=== PATIENT | female | born 1940 | race Caucasian/White ===

== ENCOUNTER 2018-04-19 10:55 | Inpatient (IN) | payer MEDICARE, BC ==
[~2018-04-19] VITALS: Ht 171.4 cm; Wt 59.9 kg
[~2018-04-19 10:55] MED LIST: FERR1TAB44 PO; FOLI1TAB16 PO; HYDR-4209 PO; PANT40TA4 PO; THIA100T13 PO; ZOLP10TA2 PO
--- NOTE | 2018-04-19 11:00 | NUR ---
BIB [facility] HOME, RUQ PAIN SINCE YESTERDAY. DENIES TRAUMA. SEEN BY MD FOR EVAL. VSS,. SAFETY AND COMFORT MEASURES PROVIDED. WILL MONITOR.
--- NOTE | 2018-04-19 11:59 | NUR ---
PT'S SISTER'S CELLPHONE NUMBER [phone]
[2018-04-19] MEDS ORDERED: MORPHINE SULFATE INJ 2 MG/ML DISP.SYRIN SQ ONE (12:00)
--- NOTE | 2018-04-19 12:00 | NUR ---
IV ACCESS STARTED. MEDICATED ORDERED.
[2018-04-19 12:04] LABS: BASOPHILS # (AUTO) 0.1 /CMM (0.0-0.2); BASOPHILS % (AUTO) 1.9 % (0.0-2.0); EOSINOPHILS % (AUTO) 1.6 % (0.0-6.0); HEMATOCRIT 40 % (33-45); HEMOGLOBIN 13.4 g/dL (11.5-14.8); LYMPHOCYTES # (AUTO) 0.5 /CMM (0.8-4.8); LYMPHOCYTES % (AUTO) 9.1 % (20.0-44.0); MEAN CORPUSCULAR HEMOGLOBIN 34 PG (26.0-33.0); MEAN CORPUSCULAR HGB CONC 34 g/dl (31.0-36.0); MEAN CORPUSCULAR VOLUME 101 fL (82-100); MONOCYTES # (AUTO) 0.8 /CMM (0.1-1.30); MONOCYTES % (AUTO) 13.7 % (2.0-12.0); NEUTROPHILS # (AUTO) 4.1 /CMM (1.8-8.9); NEUTROPHILS % (AUTO) 73.7 % (43.0-81.0); PLATELET COUNT (AUTO) 94 /CMM (150-450); RDW COEFFICIENT OF VARIATION 14.7 (11.5-15.0); RED BLOOD CELL COUNT(AUTO) 3.92 MIL/uL (4.0-5.2); WHITE BLOOD COUNT (AUTO) 5.6 K/uL (4.3-11.0)
[2018-04-19] MEDS ORDERED: MORPHINE SULFATE INJ 4 MG/ML DISP.SYRIN ONE ×2 (12:04→15:51)
[2018-04-19 12:14] LABS: CALCIUM, SERUM 8.6 mg/dL (8.5-10.1); CARBON DIOXIDE 28 mmol/L (21-32); CHLORIDE 103 mmol/L (98-107); CREATININE 1.1 mg/dL (0.6-1.3); GLUCOSE 110 mg/dL (74-106); POTASSIUM 3.7 mmol/L (3.5-5.1); SODIUM SERUM 135 mmol/L (136-145); UREA NITROGEN, BLOOD 14 mg/dL (7-18)
[2018-04-19 12:19] LABS: ALANINE AMINOTRANSFERASE 87 U/L (12-78); ALKALINE PHOSPHATASE 109 U/L (46-116); ASPARTATE AMINOTRANSFERASE 140 U/L (15-37); BILIRUBIN,DIRECT 3.1 mg/dL (0.0-0.2); BILIRUBIN,TOTAL 4.4 mg/dL (0.2-1.0); LIPASE 355 U/L (73-393); TOTAL PROTEIN, SERUM 7.4 g/dL (6.4-8.2)
[2018-04-19 12:21] LABS: TROPONIN I < 0.017 ng/mL (0.00-0.056)
--- NOTE | 2018-04-19 12:26 | NUR ---
URINE SAMPLE OBTAINED, SENT.
[2018-04-19 12:29] LABS: SERUM AMMONIA < 10 umol/L (11-32)
--- NOTE | 2018-04-19 12:50 | NUR ---
US TECH AT BS.
[2018-04-19 12:59] LABS: APPEARANCE,URINE Clear (CLEAR); BILIRUBIN,URINE LARGE (NEGATIVE); BLOOD, URINE Trace-lysed Ery/uL (NEGATIVE); COLOR,URINE Amber (YELLOW); KETONES,URINE Trace (NEGATIVE); LEUKOCYTE ESTERASE ,URINE Negative (NEGATIVE); NITRITE, URINE Negative (NEGATIVE); PH,URINE 5.5 (5.0-8.0); PROTEIN,URINE 30 mg/dl (NEGATIVE); UGLUCOSE Negative (NEGATIVE)
[2018-04-19 13:08] LABS: BACTERIA,URINE Few /HPF (None Seen); SQUAMOUS EPITHELIAL CELL,UR Few /HPF (None Seen); WBC,URINE 0-2 /HPF (0-3)
[2018-04-19 13:09] LABS: HYALINE CASTS, URINE Few /LPF (None Seen)
[2018-04-19 13:19] LABS: INR 1.14 (0.85-1.15)
[2018-04-19] MEDS ORDERED: PANTOPRAZOLE 40 MG VIAL IV ONE (14:00)
[2018-04-19] MEDS ORDERED: HYDR-3024 PO (14:08)
[2018-04-19] MEDS ORDERED: FOLI1TAB16 PO (14:08)
[2018-04-19] MEDS ORDERED: BACL10TA PO (14:08)
[2018-04-19] MEDS ORDERED: FURO20TA4 PO (14:08)
[2018-04-19] MEDS ORDERED: ZOLP5TAB8 PO (14:08)
[2018-04-19] MEDS ORDERED: SPIR25TA6 PO (14:08)
--- NOTE | 2018-04-19 14:10 | NUR ---
PT NOTED TAKING OFF HER GOWN. NOTED BOUTS OF CONFUSION. VSS. AWARE. WILL MONITOR.
[2018-04-19] MEDS ORDERED: CYAN100096 PO (15:09)
[2018-04-19] MEDS ORDERED: THIO100C2 PO (15:09)
[2018-04-19] MEDS ORDERED: FERR325T23 PO (15:09)
[2018-04-19] MEDS ORDERED: CHOL100044 PO (15:09)
[2018-04-19] MEDS ORDERED: ACET1TAB12 PO (15:09)
[2018-04-19] MEDS ORDERED: COD1CAPS6 PO (15:09)
[2018-04-19] MEDS ORDERED: PANTOPRAZOLE 40 MG VIAL ONE (15:51)
[2018-04-19] MEDS ORDERED: MORPHINE SULFATE INJ 2 MG/ML DISP.SYRIN IV ONE (16:00)
--- NOTE | 2018-04-19 16:00 | NUR ---
PT'S GOD DAUGHTER/FAMILY FRIEND AT BS AND UPDATED WITH POC.
[2018-04-19 16:25] VITALS: BP 144/74
--- NOTE | 2018-04-19 16:27 | NUR ---
REPORT GIVEN TO JAMESON JACOBSEN FOR MS 321.
--- NOTE | 2018-04-19 16:45 | NUR ---
m/s blood donor recruiter: notes admitted this 78 year old female pt from e. with dx: abdominal pain. kept pt npo, awaiting orders from hospitalist. bola (goddaughter) at bedside and wants the ball rolling for transfer to [facility]. jennie (case management) met with pt and godalanughter in pt's room and transfer in progress. left message to steve (admitting md) re: transfer request to [facility].
[2018-04-19] MEDS ORDERED: ONDANSETRON HCL/PF 4 MG/2 ML VIAL IVP PRN (17:00)
[2018-04-19] MEDS ORDERED: MAGNESIUM HYDROXIDE 30 ML UDC PO PRN (17:00)
[2018-04-19] MEDS ORDERED: ACETAMINOPHEN 325 MG TABLET PO PRN (17:00)
--- NOTE | 2018-04-19 17:30 | NUR ---
m/s barrel straightener: md visit seen and examined by ashia (acnp) with stat orders. orders acknowledged and consent obtained from pt re: hida scan. also spoke to margarita (nuclear med) and will be here in an hour and hour. pt and family made aware. pt aware no morphine due to test schedule and verbalized understanding. pt hasn't eaten since this morning and will keep pt npo. instructed to call for assistance. will monitor.
--- NOTE | 2018-04-19 18:20 | NUR ---
m/s medical coding specialist: notes [id number] who is a doctor spoke to steve (acnp) and gave more updates re: plan of care. pt remains npo and for diana martell. still awaiting transfer from [facility]; case management still working on it. pt and family aware.
--- NOTE | 2018-04-19 18:35 | NUR ---
m/s assistant professor of education: notes linda (case management) called and informed me that no doctor from [facility] will accept her but she was referred to liver transplant center as stated. steve (acnp) and cn made aware.
--- NOTE | 2018-04-19 19:20 | NUR ---
MS/RN OPENING NOTES PT AWAKE, A/OX3. AMBULATED TO RESTROOM. IV TO RIGHT HAND PATENT AND INTACT. NPO. FOR HIDA SCAN, CONSENT SIGNED AND IN THE CHART. PENDING TRANSFER TO [facility]. BED IN LOW/LOCKED POSITION WITH CALL LIGHT IN REACH. BILATERAL UPPER SIDE RAILS UP. WILL CONTINUE TO MONITOR
--- NOTE | 2018-04-19 19:29 | NUR ---
m/s spray painting machine operator: notes pt picked up by margarita (nuclear med) via w/c at this time.
[2018-04-19 20:00] VITALS: BP 131/73
--- NOTE | 2018-04-19 20:33 | NUR ---
MS/RN NOTES SPOKE TO HUNTER MOULTON FROM [facility] [phone] WHO IS WORKING ON PT'S TRANSFER. ASKING TO SPEAK TO PT FOR VERBAL CONSENT TO TRANSFER TO [facility], SAID TRANSFER WILL PROBABLY NOT HAPPEN TONIGHT. QUICK SBAR REPORT GIVEN. INFORMED HIM THAT PT IS CURRENTLY DOWN FOR HIDA SCAN, ONCE BACK UP TO UNIT WILL GIVE A CALL BACK FOR VERBAL CONSENT.
--- NOTE | 2018-04-19 21:30 | NUR ---
MS/RN NOTES PT BACK TO UNIT VIA WHEEL CHAIR IN STABLE CONDITION.
[2018-04-19] MEDS: IV NS 0.9% 1,000 ML IV PRN (22:01)
[2018-04-19] MEDS: MORPHINE SULFATE INJ 4 MG/ML DISP.SYRIN IV PRN (22:15)
--- NOTE | 2018-04-19 22:19 | NUR ---
MS/RN NOTES PT C/O 05/08 RIGHT UPPER ABDOMINAL PAIN. ADMINISTERED PRN MORPHINE ORDERED. CONSENT FOR MCRP SIGNED AND PLACED IN THE CHART. HUNTER MOULTON SPOKE TO PT OVER THE PHONE, EXPLAINED PLAN TO TRANSFER TO [facility] TOMORROW. WILL CALL TOMORROW WITH UPDATES REGARDING TRANSFER TIME ONCE BED BECOMES AVAILABLE. PT AWARE AND VERBALIZES UNDERSTANDING.
[2018-04-20] MEDS: MORPHINE SULFATE INJ 4 MG/ML DISP.SYRIN IV PRN ×5 (02:16→22:38)
[2018-04-20 06:37] LABS: BASOPHILS % (AUTO) 0.1 % (0.0-2.0); HEMATOCRIT 37 % (33-45); HEMOGLOBIN 12.3 g/dL (11.5-14.8); LYMPHOCYTES # (AUTO) 0.7 /CMM (0.8-4.8); LYMPHOCYTES % (AUTO) 13.4 % (20.0-44.0); MEAN CORPUSCULAR HEMOGLOBIN 34 PG (26.0-33.0); MEAN CORPUSCULAR HGB CONC 33 g/dl (31.0-36.0); MEAN CORPUSCULAR VOLUME 103 fL (82-100); MONOCYTES # (AUTO) 0.5 /CMM (0.1-1.30); MONOCYTES % (AUTO) 10.6 % (2.0-12.0); NEUTROPHILS # (AUTO) 3.6 /CMM (1.8-8.9); NEUTROPHILS % (AUTO) 72.9 % (43.0-81.0); PLATELET COUNT (AUTO) 87 /CMM (150-450); RDW COEFFICIENT OF VARIATION 15.4 (11.5-15.0); RED BLOOD CELL COUNT(AUTO) 3.57 MIL/uL (4.0-5.2)
[2018-04-20 06:49] LABS: CALCIUM, SERUM 8.4 mg/dL (8.5-10.1); CARBON DIOXIDE 26 mmol/L (21-32); CHLORIDE 106 mmol/L (98-107); GLUCOSE 98 mg/dL (74-106); MAGNESIUM 1.4 mg/dL (1.8-2.4); PHOSPHORUS 4.3 mg/dL (2.5-4.9); SODIUM SERUM 139 mmol/L (136-145); UREA NITROGEN, BLOOD 18 mg/dL (7-18)
--- NOTE | 2018-04-20 06:49 | NUR ---
MS/RN CLOSING NOTES PT AWAKE, RESTING IN BED. A/OX3. ON ROOM AIR, BREATHING EVEN AND UNLABORED. DENIES SOB, PAIN WELL CONTROLLED AT THIS TIME. NPO STATUS MAINTAINED. FOR MRCP THIS AM, CONSENT SIGNED AND PLACED IN THE CHART. PT AWARE. IV TO LFA PATENT AND INTACT RUNNING IVF ORDERED. AWARE OF POSSIBLE TRANSFER TO [facility] TODAY. ALL QUESTIONS ANSWERED. BED REMAINS IN LOW/LOCKED POSITION WITH CALL LIGHT IN REACH. BILATERAL UPPER SIDE RAILS IN PLACE. SAFETY PRECAUTIONS IMPLEMENTED THROUGHOUT SHIFT. ALL NEEDS MET. WILL ENDORSE TO DAY SHIFT RN MEGHANN.
[2018-04-20 07:19] LABS: CHOLESTEROL 156 mg/dL (<200); HDL CHOLESTEROL 31 mg/dL (40-60); LDL 120 mg/dL (0-99); TRIGLYCERIDES 118 mg/dL (30-150)
[2018-04-20 08:00] VITALS: BP 136/72
[2018-04-20 08:31] LABS: EOSINOPHILS % (MANUAL) 3 % (0-4); LYMPHOCYTES % (MANUAL) 9 % (16-48); MONOCYTES % (MANUAL) 7 % (0-11.0); NEUTROPHILS % (MANUAL) 81 (42-76)
[2018-04-20] MEDS: Magnesium 1GM/D5W 100ML PREMIX 100 ML IV SCH ×4 (10:39→13:39)
[2018-04-20 11:06] LABS: ALBUMIN 2.9 g/dL (3.4-5.0); BILIRUBIN,DIRECT 3.5 mg/dL (0.0-0.2); BILIRUBIN,TOTAL 5.3 mg/dL (0.2-1.0)
[2018-04-20 16:00] VITALS: BP 130/89
--- NOTE | 2018-04-20 17:00 | NUR ---
RECEIVED REPORT FROM BRANDON PABLO. PT. IS IN STABLE CONDITION A&OX4. PT. DOES NOT C/O PAIN. AMBULATING STEADY, AND ALL NEEDS MET AT THIS TIME. WILL CONTINUE TO ASSESS AND MONITOR PT.
--- NOTE | 2018-04-20 19:30 | NUR ---
RN CLOSING NOTES PT. IN BED A&OX4. BREATHING UNLABORED ON ROOM AIR. NO S/S OF ACUTE DISTRESS.BED IS IN LOWEST, AND LOCKED POSITION. ALL NEEDS MET. WILL ENDORSE REPORT TO NURSE.
[2018-04-20 20:00] VITALS: BP 130/67
--- NOTE | 2018-04-20 20:00 | NUR ---
RECIEVED ALERT AND ORIENTATED SPEECH CLEAR MOVING ALL EXTREMITIES. SPEAKS OF BEING TRANSFERED TO [facility]
[2018-04-20 22:01] VITALS: BP 154/91
[2018-04-20] MEDS: IV NS 0.9% 1,000 ML IV PRN (23:56)
--- NOTE | 2018-04-21 04:52 | NUR ---
ENDING NOTES: EARLY IN THE SHIFT SHE SPOKE OF GOING TO [facility]. SHE IS ALERT AND ORIENTATED. NOTEDD THE BRUISE ON THE RIDE SIDE TORSO WITH HEMATOMIA. SHE STATES SHE FELL AT HOME .MEDICATED X1 PRIOR TO SLEEP FOR THIS PAIN, WHICH MOROPHINE WAS EFFECTIVE. NO C/O ABD PAIN AND NO NAUSEA. BEDALARM ON FOR SAFETY AND REVIEWED THE CALL LIGHT SYSTEM WITH HER. SHE IS SMILING AND IS FRIENDLY
[2018-04-21 06:33] LABS: BASOPHILS % (AUTO) 0.2 % (0.0-2.0); EOSINOPHILS % (AUTO) 2.6 % (0.0-6.0); HEMATOCRIT 35 % (33-45); HEMOGLOBIN 11.6 g/dL (11.5-14.8); LYMPHOCYTES # (AUTO) 0.7 /CMM (0.8-4.8); LYMPHOCYTES % (AUTO) 14.5 % (20.0-44.0); MEAN CORPUSCULAR HEMOGLOBIN 35 PG (26.0-33.0); MEAN CORPUSCULAR HGB CONC 34 g/dl (31.0-36.0); MEAN CORPUSCULAR VOLUME 104 fL (82-100); MONOCYTES # (AUTO) 0.4 /CMM (0.1-1.30); MONOCYTES % (AUTO) 8.3 % (2.0-12.0); NEUTROPHILS # (AUTO) 3.4 /CMM (1.8-8.9); NEUTROPHILS % (AUTO) 74.4 % (43.0-81.0); PLATELET COUNT (AUTO) 75 /CMM (150-450); RDW COEFFICIENT OF VARIATION 15.4 (11.5-15.0); RED BLOOD CELL COUNT(AUTO) 3.34 MIL/uL (4.0-5.2); WHITE BLOOD COUNT (AUTO) 4.6 K/uL (4.3-11.0)
[2018-04-21 07:25] LABS: LYMPHOCYTES % (MANUAL) 17 % (16-48); MONOCYTES % (MANUAL) 5 % (0-11.0); NEUTROPHILS % (MANUAL) 77 (42-76)
[2018-04-21 07:26] LABS: EOSINOPHILS % (MANUAL) 1 % (0-4)
[2018-04-21 07:29] LABS: ALANINE AMINOTRANSFERASE 63 U/L (12-78); ALBUMIN 2.7 g/dL (3.4-5.0); ALKALINE PHOSPHATASE 93 U/L (46-116); ASPARTATE AMINOTRANSFERASE 110 U/L (15-37); BILIRUBIN,DIRECT 3.3 mg/dL (0.0-0.2); BILIRUBIN,TOTAL 4.9 mg/dL (0.2-1.0); CALCIUM, SERUM 8.1 mg/dL (8.5-10.1); CARBON DIOXIDE 25 mmol/L (21-32); CHLORIDE 104 mmol/L (98-107); CREATININE 0.9 mg/dL (0.6-1.3); GLUCOSE 79 mg/dL (74-106); MAGNESIUM 1.9 mg/dL (1.8-2.4); PHOSPHORUS 3.1 mg/dL (2.5-4.9); POTASSIUM 4.2 mmol/L (3.5-5.1); SODIUM SERUM 137 mmol/L (136-145); TOTAL PROTEIN, SERUM 6.5 g/dL (6.4-8.2); UREA NITROGEN, BLOOD 18 mg/dL (7-18)
--- NOTE | 2018-04-21 07:38 | NUR ---
RN OPENING NOTES RECEIVED PT. PT IS STABLE AND RESTING IN BED. NO S/S OF RESP DISTRESS OR SOB. NO C/O PAIN AT THIS TIME. IV ACCESS LOCATED ON LFA 22G, INFUSING NS AT 75 CC/HR. PER DRIP BOX TENDER REPORT, PT AWAITING TRANSFER TO [facility] ([facility] - [phone]), WILL F/U WITH CM. SAFETY MEASURES IN PLACE, CALL LIGHT WITHIN REACH. WILL CONTINUE TO MONITOR.
[2018-04-21 08:00] VITALS: BP 121/60
[2018-04-21] MEDS: MORPHINE SULFATE INJ 4 MG/ML DISP.SYRIN IV PRN (08:06)
[2018-04-21 09:00] VITALS: BP 121/60
--- NOTE | 2018-04-21 13:00 | NUR ---
DISCHARGE NOTE PT DISCHARGED HOME. NO S/S OF RESP DISTRESS OR SOB. VSS. NO C/O PAIN AT THIS TIME. DISCHARGE TEACHING PERFORMED UTILIZING EXIT CARE. PT VERBALIZES UNDERSTANDING. BELONGINGS LIST AND D/C PAPERWORK SIGNED, COPIED AND PLACED IN CHART. PT REFUSED PICTURES OF RIGHT FLANK BRUISE UPON D/C. IV ACCESS AND ID BAND REMOVED. PT LEFT HOSPITAL IN PRIVATE VEHICLE WITH TRANSPORTATION SERVICES.
== END 2018-04-21 13:15 | disposition home or self-care (01) | DRG 605 ==
LOC: ER 10:57 → MED 16:05
PROVIDERS: ADMIT Nurse Practitioner Acute Care; ATTEND Nurse Practitioner Acute Care
DX: S30.1XXA Contusion of abdominal wall, initial encounter (principal); D69.59 Other secondary thrombocytopenia; F10.10 Alcohol abuse, uncomplicated; K70.10 Alcoholic hepatitis without ascites; K70.30 Alcoholic cirrhosis of liver without ascites; Z87.891 Personal history of nicotine dependence
CPT/HCPCS: 36415; 74181-TC; 76700-TC; 78226; 80048-TC; 80061-TC; 80076-TC; 80305; 81000-TC; 82140-TC; 83605-TC; 83690-TC; 83735-TC; 84100-TC; 84484-TC; 85025-TC; 85730-TC; 87081-TC; A4606; A9537; C9113; G0480; J2270; J3475; J3490; J7030; Z7610

== ENCOUNTER 2018-05-09 16:35 | Inpatient (IN) | payer MEDICARE, BC ==
[~2018-05-09] VITALS: Ht 170.2 cm; Wt 60.9 kg
[~2018-05-09 16:35] MED LIST changes: +ACET1TAB12 PO; +BACL10TA PO; +CHOL100044 PO; +COD1CAPS6 PO; +CYAN100096 PO; -FERR1TAB44 PO; +FERR325T23 PO; +FURO20TA4 PO; +HYDR-3024 PO; +SPIR25TA6 PO; +THIO100C2 PO; -ZOLP10TA2 PO; +ZOLP5TAB8 PO
--- NOTE | 2018-05-09 17:00 | NUR ---
PATIENT JEFFERSON C/O WEAKNESS THAT HAS NOT GOTTEN BETTER. WAS D/C'D FROM [facility] YESTERDAY AFTER FALL. ALSO WAS AT [facility] RECENTLY AND WAS KAYLEIGH BILIRUBIN LEVEL WAS ELEVATED AND TX FOR LIVER. PATIENT IS A POOR HISTORIAN AND PASSIVE WITH EDUCATION AND CONVERSATION. PATIENT VSS. PALCED ON 2LPM NC FOR COMFORT
[2018-05-09 17:31] LABS: BASOPHILS % (AUTO) 0.7 % (0.0-2.0); EOSINOPHILS % (AUTO) 2.4 % (0.0-6.0); HEMATOCRIT 39 % (33-45); HEMOGLOBIN 13.4 g/dL (11.5-14.8); LYMPHOCYTES # (AUTO) 0.7 /CMM (0.8-4.8); LYMPHOCYTES % (AUTO) 20.1 % (20.0-44.0); MEAN CORPUSCULAR HGB CONC 34 g/dl (31.0-36.0); MEAN CORPUSCULAR VOLUME 102 fL (82-100); MONOCYTES # (AUTO) 0.3 /CMM (0.1-1.30); MONOCYTES % (AUTO) 9.8 % (2.0-12.0); NEUTROPHILS # (AUTO) 2.1 /CMM (1.8-8.9); RDW COEFFICIENT OF VARIATION 16.6 (11.5-15.0); RED BLOOD CELL COUNT(AUTO) 3.87 MIL/uL (4.0-5.2); WHITE BLOOD COUNT (AUTO) 3.2 K/uL (4.3-11.0)
--- NOTE | 2018-05-09 17:37 | NUR ---
PATIENT TAKEN TO CT
[2018-05-09 17:42] LABS: ALANINE AMINOTRANSFERASE 47 U/L (12-78); ALBUMIN 3.2 g/dL (3.4-5.0); ALCOHOL, BLOOD < 3 mg/dL (0-0); ALKALINE PHOSPHATASE 141 U/L (46-116); ASPARTATE AMINOTRANSFERASE 140 U/L (15-37); BILIRUBIN,DIRECT 2.9 mg/dL (0.0-0.2); BILIRUBIN,TOTAL 5.8 mg/dL (0.2-1.0); CALCIUM, SERUM 8.9 mg/dL (8.5-10.1); CARBON DIOXIDE 30 mmol/L (21-32); CHLORIDE 95 mmol/L (98-107); CREATININE 1.9 mg/dL (0.6-1.3); GLUCOSE 106 mg/dL (74-106); POTASSIUM 3.5 mmol/L (3.5-5.1); SODIUM SERUM 134 mmol/L (136-145); TOTAL PROTEIN, SERUM 7.4 g/dL (6.4-8.2); UREA NITROGEN, BLOOD 25 mg/dL (7-18)
[2018-05-09 17:47] LABS: PLATELET COUNT (AUTO) 50 /CMM (150-450)
[2018-05-09 18:00] LABS: SERUM AMMONIA 16 umol/L (11-32)
[2018-05-09 18:22] LABS: BAND % (MANUAL) 12 % (0.0-5.0); EOSINOPHILS % (MANUAL) 3 % (0-4); LYMPHOCYTES % (MANUAL) 23 % (16-48); MONOCYTES % (MANUAL) 8 % (0-11.0); NEUTROPHILS % (MANUAL) 54 (42-76)
[2018-05-09] MEDS ORDERED: HYDROCODONE/APAP 5/325MG 1 EACH TABLET ONE (18:46)
[2018-05-09] MEDS ORDERED: HYDROCODONE/APAP 5/325MG 1 EACH TABLET PO ONE (19:00)
[2018-05-09 19:06] LABS: INR 1.26 (0.87-1.13)
--- NOTE | 2018-05-09 19:32 | NUR ---
CARE ENDORSED TO BEV WALKER FOR MEGHANN
[2018-05-09] MEDS ORDERED: ZOLPIDEM TARTRATE 5 MG TABLET PO PRN (20:00)
[2018-05-09] MEDS ORDERED: ONDANSETRON HCL/PF 4 MG/2 ML VIAL IVP PRN (20:00)
[2018-05-09] MEDS ORDERED: ACETAMINOPHEN 325 MG TABLET PO PRN (20:00)
[2018-05-09] MEDS ORDERED: MAGNESIUM HYDROXIDE 30 ML UDC PO PRN (20:00)
[2018-05-09] MEDS ORDERED: BACLOFEN (10 MG) 10 MG TABLET PO PRN (20:00)
[2018-05-09] MEDS ORDERED: MAG HYDROX/AL HYDROX/SIMETH 30 ML UDC PO PRN (20:00)
[2018-05-09] MEDS ORDERED: Z GUARD REMEDY 2 OZ OINT TP PRN (20:00)
--- NOTE | 2018-05-09 20:29 | NUR ---
CALLED AND GIVE REPORT TO NARCISA PABLO, FOR CONTINUITY OF CARE. PT IS IN STABLE CONDITION.
[2018-05-09 20:30] VITALS: BP 104/57
--- NOTE | 2018-05-09 20:40 | NUR ---
TELE EXERCISE SCIENCE INTERNSHIP INITIAL NOTES ADMIT PT FROM ER VIA SANGEETHA ACCOMPANIED BY CHEMICAL COMPOUNDER HELPER. DX OF ENCEPHALOPATY. PT IS AWAKE AND ALERT , ABLE TO AMBULATE WITH CANE AND ASSISTANCE. NO SIGNS OF ANY ACUTE DISTRESS NOTED. AWARE WHERE SHE AT . SHE ALSO CAN PROVIDE SOME INFORMATION ABOUT HERSELF. PT STATED SHE NOTICED SHE'S FEELING WEAKNESS LAVON THE WEEK THAT'S WHY SHE HAD MULTIPLE FALLS. ORIENTED HOW TO USED THE CALL LIGHT SYSTEM AND AT THE SAME TIME ENCOURAGE HER TO USED IT IF SHE NEEDS SOME HELPED OR NEEDS THE NURSE . SINUS RHYTHM ON TELE MONITOR. PLACE BED IN LOW AND LOCK IN POSITION WITH SIDE RAILS X2 UP PLACE CALL LIGHT AT REACH. BED ALARM SET FOR SAFETY. WILL CONTINUE MONITOR.
[2018-05-09 20:45] VITALS: BP 104/57
[2018-05-09] MEDS: HYDROCODONE/APAP 5/325MG 1 EACH TABLET PO PRN (22:09)
[2018-05-09] MEDS: ZOLPIDEM TARTRATE 5 MG TABLET PO PRN (22:47)
[2018-05-10] VITALS: BP 105/48
[2018-05-10] MEDS: LACTULOSE 10 G/15 ML UDC (PYXIS) PO SCH ×5 (01:04→23:17)
[2018-05-10] MEDS: HYDROCODONE/APAP 5/325MG 1 EACH TABLET PO PRN ×3 (02:24→20:28)
--- NOTE | 2018-05-10 02:26 | NUR ---
TELE MARKET NEWS REPORTER NOTES PT WOKE UP TO USED THE RESTROOM ASSISTED TO WALKED WITH CANE. THE AFTER THAT PT COMPLAINED OF PAIN 5/10, NORCO TABLET GIVEN ORDERED . EDUCATE HER ABOUT THE POSSIBLE SIDE EFFECT AND PT UNDERSTOOD WELL. KEPT HER WARM AND COMFORTABLE AT ALL TIMES. WILL CONTINUE MONITORING.
[2018-05-10 04:00] VITALS: BP 120/68
--- NOTE | 2018-05-10 06:47 | NUR ---
TELE HYDROPONICS WORKER NOTES PT AWAKE AND ALERT EATING SOME SANDWICH RIGHT NOW BECAUSE SHE FEEL HUNGRY, ROUTINE MEDS GIVEN ORDERED. BACLOFEN ALSO GIVEN FOR HER MUSCLE SPASM. KEPT HER COMFORTABLE AT ALL TIMES. PLACE CALL LIGHT AT REACH. WILL CONTINUE MONITORING.
[2018-05-10 06:51] LABS: BASOPHILS % (AUTO) 0.7 % (0.0-2.0); EOSINOPHILS % (AUTO) 3.7 % (0.0-6.0); HEMATOCRIT 34 % (33-45); HEMOGLOBIN 11.9 g/dL (11.5-14.8); LYMPHOCYTES # (AUTO) 0.7 /CMM (0.8-4.8); LYMPHOCYTES % (AUTO) 24.3 % (20.0-44.0); MEAN CORPUSCULAR HGB CONC 35 g/dl (31.0-36.0); MEAN CORPUSCULAR VOLUME 103 fL (82-100); MONOCYTES # (AUTO) 0.3 /CMM (0.1-1.30); MONOCYTES % (AUTO) 10.4 % (2.0-12.0); NEUTROPHILS # (AUTO) 1.7 /CMM (1.8-8.9); NEUTROPHILS % (AUTO) 60.9 % (43.0-81.0); RDW COEFFICIENT OF VARIATION 16.8 (11.5-15.0); RED BLOOD CELL COUNT(AUTO) 3.32 MIL/uL (4.0-5.2); WHITE BLOOD COUNT (AUTO) 2.8 K/uL (4.3-11.0)
[2018-05-10 07:28] LABS: ALANINE AMINOTRANSFERASE 45 U/L (12-78); ALBUMIN 2.7 g/dL (3.4-5.0); ALKALINE PHOSPHATASE 114 U/L (46-116); ASPARTATE AMINOTRANSFERASE 137 U/L (15-37); BILIRUBIN,DIRECT 3.2 mg/dL (0.0-0.2); BILIRUBIN,TOTAL 6.1 mg/dL (0.2-1.0); CALCIUM, SERUM 8.2 mg/dL (8.5-10.1); CARBON DIOXIDE 27 mmol/L (21-32); CHLORIDE 94 mmol/L (98-107); CREATININE 1.3 mg/dL (0.6-1.3); GLUCOSE 82 mg/dL (74-106); PHOSPHORUS 3.2 mg/dL (2.5-4.9); POTASSIUM 3.6 mmol/L (3.5-5.1); SODIUM SERUM 129 mmol/L (136-145); TOTAL PROTEIN, SERUM 6.3 g/dL (6.4-8.2); UREA NITROGEN, BLOOD 26 mg/dL (7-18)
[2018-05-10 07:30] LABS: CHOLESTEROL 148 mg/dL (<200); HDL CHOLESTEROL 53 mg/dL (40-60); LDL 97 mg/dL (0-99); THYROID STIMULATING HORMONE 3.001 uIU/mL (0.358-3.74); TRIGLYCERIDES 97 mg/dL (30-150)
--- NOTE | 2018-05-10 07:35 | NUR ---
TELE BALLROOM DANCER CLOSING NOTES' PT AWAKE AND WATCHING TV AT THIS TIME. ALL DUE MEDS GIVEN AND ALL NEEDS MET.STABLE LAVON THE NIGHT EXCEPT PAIN . ENDORSE TO AM NURSE FOR CONTINUITY OF CARE. PLACE CALL LIGHT AT REACH. Addendum: 05/10/18 at 0751 by NARCISA IBARRA LVN TELE SINUS RHYTHM HEART RATE 82 PER MONITOR.
[2018-05-10 07:38] LABS: PLATELET COUNT (AUTO) 50 /CMM (150-450)
[2018-05-10 07:40] LABS: MAGNESIUM 1.2 mg/dL (1.8-2.4)
[2018-05-10 07:47] LABS: BAND % (MANUAL) 4 % (0.0-5.0); EOSINOPHILS % (MANUAL) 4 % (0-4); LYMPHOCYTES % (MANUAL) 27 % (16-48); MONOCYTES % (MANUAL) 9 % (0-11.0); NEUTROPHILS % (MANUAL) 56 (42-76)
[2018-05-10 08:00] VITALS: BP 142/69
--- NOTE | 2018-05-10 08:00 | NUR ---
QUARTER FOLDER NOTES PATIENT IN BED RESTING NO SOB OR ACUTE DISTRESS NOTED. PATIENT ALERT, ORIENTED X3. BED IN LOW LOCKED POSITION. CALL LIGHT WITHIN REACH. WILL CONTINUE TO MONITOR.
[2018-05-10] MEDS: FOLIC ACID 1 MG TABLET PO SCH (08:23)
[2018-05-10] MEDS: FERROUS SULFATE (325 MG) 325 MG/TAB TABLET PO SCH (08:23)
[2018-05-10] MEDS: CHOLECALCIFEROL 1,000 UNIT TABLET (VIT D3) PO SCH (08:23)
[2018-05-10] MEDS: THIAMINE HCL 100 MG TABLET PO SCH (08:23)
[2018-05-10] MEDS: PANTOPRAZOLE 40 MG TABLET.DR PO SCH (08:23)
[2018-05-10] MEDS: SPIRONOLACTONE 25 MG TABLET PO SCH (08:23)
--- NOTE | 2018-05-10 09:00 | NUR ---
HOME IMPROVEMENT ADVISOR NOTES PATIENT SEEN AND EVALUATED BY DR. IGLESIAS ORDERS NOTED AND CARRIED OUT.
[2018-05-10] MEDS: Magnesium 1GM/D5W 100ML PREMIX 100 ML IV SCH ×4 (09:31→16:08)
[2018-05-10] MEDS: GABAPENTIN 100 MG CAPSULE PO SCH ×2 (12:23→16:57)
[2018-05-10 12:53] LABS: APPEARANCE,URINE SL CLOUDY (CLEAR); BILIRUBIN,URINE NEGATIVE (NEGATIVE); BLOOD, URINE TRACE Ery/uL (NEGATIVE); COLOR,URINE YELLOW (YELLOW); KETONES,URINE NEGATIVE (NEGATIVE); LEUKOCYTE ESTERASE ,URINE NEGATIVE (NEGATIVE); NITRITE, URINE NEGATIVE (NEGATIVE); PROTEIN,URINE NEGATIVE (NEGATIVE); UGLUCOSE NEGATIVE (NEGATIVE)
[2018-05-10 13:08] LABS: BACTERIA,URINE Rare /HPF (None Seen); RBC,URINE 0-2 /HPF (0-2); WBC,URINE 0-2 /HPF (0-3)
[2018-05-10 16:00] VITALS: BP 128/63
--- NOTE | 2018-05-10 18:16 | NUR ---
RN NOTED PATIENT IN BED RESTING NO SOB OR ACUTE DISTRESS NOTED. NO ACUTE CHANGES IN PATIENTS CONDITION. ALL DUE MEDICATIONS ADMINISTERED. ALL NEEDS MET. WILL ENDORSE TO PM SHIFT MEGHANN.
--- NOTE | 2018-05-10 19:30 | NUR ---
RN MS NOTES RECEIVED PATIENT IN BED AWAKE ALERT AND ORIENTED X 4, RESPIRATIONS EVEN AND UNLABORED,WITH EQUAL RISE AND FALL OF CHEST, DENIES ANY PAIN OR DISCOMFORT AT THIS TIME, IV SITE TO RIGHT FA #20HL, NO REDNESS, NO INFILTRATION PRESENT, ORIENTED TO STAFF AND CALL LIGHT LIGHT AND KEPT WITHIN REACH, PATIENT IS AMBULATORY WITH CANE, DUE TO HISTORY OF FALLS, OFFERED TO PLACE BED ALARM FOR SAFETY PRECAUTIONS PATIENT STRONGLY REFUSED, MADE PATIENT AWARE TO UTILIZE CALL LIGHT FOR NURSING ASSISTANCE. ALL NEEDS ATTENDED AT THIS TIME, WILL CONTINUE TO MONITOR.
[2018-05-10 20:00] VITALS: BP 136/71
--- NOTE | 2018-05-10 20:32 | NUR ---
RN MS NOTES PATIENT COMPLAINT OF PAIN 10/10 TO RIGHT SIDE TORSO AREA. REQUESTING FOR NORCO VITAL SIGNS ASSESSED NOTED B/P WITHIN NORMAL LIMITS 136/71, 98 HEART RATE, RESP 18. NORCO 5-325 PRN GIVEN ORDERED
[2018-05-10] MEDS: ZOLPIDEM TARTRATE 5 MG TABLET PO PRN (22:14)
--- NOTE | 2018-05-10 22:14 | NUR ---
rn ms notes patient requesting for ambien prn given as ordered patient remains in no apparent distress vital signs wnl.
--- NOTE | 2018-05-10 23:16 | NUR ---
rn ms notes patient remains awake at this time but is trying to go to sleep, will continue to monitor.
--- NOTE | 2018-05-10 23:16 | NUR ---
EDUCATED PT AT THIS TIME ON HOW TO USE THE INCENTIVE SPIROMETER. PT IS AWAKE AND ALERT. PT IS FAMILIAR ON HOW TO USE THE DEVICE. PT WAS IN PAIN AND WANTED TO TRY IN THE MORNING. INFORMED THE RN.
--- NOTE | 2018-05-10 23:18 | NUR ---
rn ms notes patient refused lactulose states she does not want it has been going ever since it was given. patient is a&o x4
[2018-05-11] MEDS: LACTULOSE 10 G/15 ML UDC (PYXIS) PO SCH ×3 (06:00→17:23)
--- NOTE | 2018-05-11 06:51 | NUR ---
RN MS CLOSING NOTES PATIENT IN BED AWAKE ALERT AND ORIENTED X 4, RESPIRATIONS EVEN AND UNLABORED,WITH EQUAL RISE AND FALL OF CHEST, DENIES ANY PAIN OR DISCOMFORT AT THIS TIME, IV SITE TO RIGHT FA #20HL, NO REDNESS, NO INFILTRATION PRESENT, CALL LIGHT LIGHT KEPT WITHIN REACH, PATIENT IS AMBULATORY WITH CANE, DUE TO HISTORY OF FALLS, OFFERED TO PLACE BED ALARM FOR SAFETY PRECAUTIONS PATIENT STRONGLY REFUSED, MADE PATIENT AWARE TO UTILIZE CALL LIGHT FOR NURSING ASSISTANCE. ALL NEEDS ATTENDED AT THIS TIME, WILL CONTINUE TO MONITOR AND ENDORSE TO NEXT SHIFT. PATIENT REFUSED LACTULOSE
--- NOTE | 2018-05-11 07:27 | NUR ---
MS RN OPENING NOTES PT WAS RECEIVED IN BED AT LOWEST AND LOCKED PSOITION WITH SIDE RAILS UP X2, A/O X3-4, NO S/S OF PAIN OR DISTRESS NOTED, BREATHING IS EVEN AND UNLABORED ON RA, PT IS AMBULATORY WITH CANE, IV IS PATENT AND INTACT, SAFETY PRECAUTIONS IN PLACE, CALL LIGHT WITHIN REACH, WILL MONITOR ACCORDINGLY.
[2018-05-11 08:00] VITALS: BP 118/72
[2018-05-11] MEDS: SPIRONOLACTONE 25 MG TABLET PO SCH (08:45)
[2018-05-11] MEDS: GABAPENTIN 100 MG CAPSULE PO SCH ×3 (08:45→16:08)
[2018-05-11] MEDS: FERROUS SULFATE (325 MG) 325 MG/TAB TABLET PO SCH (08:47)
[2018-05-11] MEDS: CHOLECALCIFEROL 1,000 UNIT TABLET (VIT D3) PO SCH (08:47)
[2018-05-11] MEDS: PANTOPRAZOLE 40 MG TABLET.DR PO SCH (08:47)
[2018-05-11] MEDS: FOLIC ACID 1 MG TABLET PO SCH (08:47)
[2018-05-11] MEDS: HYDROCODONE/APAP 5/325MG 1 EACH TABLET PO PRN ×2 (08:47→21:09)
[2018-05-11] MEDS: THIAMINE HCL 100 MG TABLET PO SCH (08:48)
[2018-05-11 16:00] VITALS: BP 128/60
--- NOTE | 2018-05-11 17:30 | NUR ---
PT HAS REFUSED CEPHULAC AT 1200 AND 1800, STATING SHE DOES NOT LIKE THAT SHE IS GOING TO THE BATHROOM SO MUCH, EDUCATION REGARDING THE DRUG WAS PROVIDED, WILL MONITOR ACCORDINGLY
--- NOTE | 2018-05-11 18:09 | NUR ---
MS RN CLOSING NOTES PT IN BED AT LOWEST AND LOCKED POSITION WITH SIDE RAILS UP X2, A/O X3-4, NO S/S OF PAIN OR DISTRESS NOTED, BREATHING IS EVEN AND UNLABORED ON RA, PT IS AMBULATORY WITH CANE, IV IS PATENT AND INTACT, WOUND DRESSINGS CHANGED, ALL NEEDS ATTENDED TO, SAFETY PRECAUTIONS IN PLACE, CALL LIGHT WITHIN REACH, WILL ENDORSE TO DAY SHIFT FOR CONTINUITY OF CARE
--- NOTE | 2018-05-11 19:45 | NUR ---
RN OPENING NOTES RECEIVED REPORT FROM MARYCRUZWABRYANNA WALL. FOUND Pt AWAKE, RESTING IN BED READING MAGAZINES. NO S/S OF ACUTE DISTRESS OR SOB NOTED. Pt IS A/OX3, VERBAL, ABLE TO MAKE NEEDS KNOWN. Pt REFUSED TO TAKE THE LACTULOSE EARLIER TODAY, BUT AGREED TO TAKE THE MIDNIGHT DOSE. Pt REQUESTED FOR AMBIEN LATER TONIGHT. IV ACCESS ON RFA #20G, SL. SAFETY MEASURES IN PLACE. BED LOW, LOCKED, HOB ELEVATED, SIDE RAILS UP, CALL LIGHT, AND BEDSIDE TABLE WITHIN REACH. WILL CONTINUE TO MONITOR Pt THROUGHOUT THE NIGHT FOR SAFETY.
[2018-05-11 20:00] VITALS: BP 112/70
[2018-05-12] MEDS: ZOLPIDEM TARTRATE 5 MG TABLET PO PRN (00:02)
[2018-05-12] MEDS: LACTULOSE 10 G/15 ML UDC (PYXIS) PO SCH ×3 (00:02→12:11)
--- NOTE | 2018-05-12 06:15 | NUR ---
RN NOTES Pt REFUSED SCHEDULED LACTULOSE AT 0600. PER Pt STATEMENT ONLY WANTS TO TAKE IT AT NIGHT TIME INSTEAD OF DURING THE DAY.
--- NOTE | 2018-05-12 06:23 | NUR ---
RN CLOSING NOTES NO SIGNIFICANT CHANGES IN Pt's CONDITION. Pt REMAINS STABLE AT THIS TIME. NO S/S OF ACUTE DISTRESS OR SOB NOTED DURING THE NIGHT. Pt IS AWAKE & RESTING IN BED. ALL NEEDS MET AND ATTENDED TO. SAFETY MEASURES IN PLACE. WILL ENDORSE TO DAYSHIFT RN FOR Pt's MEGHANN.
[2018-05-12 07:31] LABS: BASOPHILS % (AUTO) 0.4 % (0.0-2.0); HEMATOCRIT 32 % (33-45); LYMPHOCYTES # (AUTO) 0.6 /CMM (0.8-4.8); LYMPHOCYTES % (AUTO) 26.6 % (20.0-44.0); MEAN CORPUSCULAR HGB CONC 34 g/dl (31.0-36.0); MEAN CORPUSCULAR VOLUME 104 fL (82-100); MONOCYTES # (AUTO) 0.3 /CMM (0.1-1.30); MONOCYTES % (AUTO) 13.6 % (2.0-12.0); NEUTROPHILS # (AUTO) 1.2 /CMM (1.8-8.9); NEUTROPHILS % (AUTO) 56.4 % (43.0-81.0); PLATELET COUNT (AUTO) 52 /CMM (150-450); RDW COEFFICIENT OF VARIATION 17.2 (11.5-15.0); RED BLOOD CELL COUNT(AUTO) 3.11 MIL/uL (4.0-5.2); WHITE BLOOD COUNT (AUTO) 2.1 K/uL (4.3-11.0)
--- NOTE | 2018-05-12 07:39 | NUR ---
MS RN OPENING NOTES RECEIVED PT FROM NIGHTSHIFT NURSE IN STABLE CONDITION. PT IS A/O X3. NO SOB OR ACUTE SIGNS OF DISTRESS NOTED. BREATHING IS EVEN AND UNLABORED. PT ON RA AND SATING WELL. WOUND DRESSINGS NOTED TO BE CLEAN, DRY, AND INTACT, IV NOTED TO BE PATENT AND INTACT. NO REDNESS OR SIGNS OF INFILTRATION NOTED. BED IN LOW LOCKED POSITION, SIDE RAILS UP X2, CALL LIGHT WITHIN REACH. WILL CONTINUE TO MONITOR
[2018-05-12 07:44] LABS: ALANINE AMINOTRANSFERASE 56 U/L (12-78); ALBUMIN 2.6 g/dL (3.4-5.0); ALKALINE PHOSPHATASE 123 U/L (46-116); ASPARTATE AMINOTRANSFERASE 142 U/L (15-37); BILIRUBIN,DIRECT 2.8 mg/dL (0.0-0.2); BILIRUBIN,TOTAL 4.3 mg/dL (0.2-1.0); CALCIUM, SERUM 8.6 mg/dL (8.5-10.1); CARBON DIOXIDE 27 mmol/L (21-32); CHLORIDE 99 mmol/L (98-107); GLUCOSE 116 mg/dL (74-106); MAGNESIUM 1.4 mg/dL (1.8-2.4); PHOSPHORUS 2.7 mg/dL (2.5-4.9); POTASSIUM 3.8 mmol/L (3.5-5.1); SODIUM SERUM 134 mmol/L (136-145); TOTAL PROTEIN, SERUM 6.5 g/dL (6.4-8.2); UREA NITROGEN, BLOOD 12 mg/dL (7-18)
[2018-05-12 08:00] VITALS: BP 117/67
[2018-05-12] MEDS: GABAPENTIN 100 MG CAPSULE PO SCH ×3 (08:43→17:10)
[2018-05-12] MEDS: CHOLECALCIFEROL 1,000 UNIT TABLET (VIT D3) PO SCH (08:43)
[2018-05-12] MEDS: FERROUS SULFATE (325 MG) 325 MG/TAB TABLET PO SCH (08:43)
[2018-05-12] MEDS: THIAMINE HCL 100 MG TABLET PO SCH (08:43)
[2018-05-12] MEDS: PANTOPRAZOLE 40 MG TABLET.DR PO SCH (08:44)
[2018-05-12] MEDS: SPIRONOLACTONE 25 MG TABLET PO SCH (08:44)
[2018-05-12] MEDS: HYDROCODONE/APAP 5/325MG 1 EACH TABLET PO PRN ×2 (08:46→14:39)
[2018-05-12] MEDS: FOLIC ACID 1 MG TABLET PO SCH (08:46)
[2018-05-12 11:11] LABS: EOSINOPHILS % (MANUAL) 3 % (0-4); LYMPHOCYTES % (MANUAL) 22 % (16-48); MONOCYTES % (MANUAL) 10 % (0-11.0); NEUTROPHILS % (MANUAL) 65 (42-76)
[2018-05-12] MEDS: Magnesium 1GM/D5W 100ML PREMIX 100 ML IV SCH ×4 (12:12→16:15)
[2018-05-12] MEDS ORDERED: LACT10SO6 PO (12:21)
[2018-05-12] MEDS ORDERED: GABA100C PO (12:21)
[2018-05-12] MEDS ORDERED: HYDR-3972 PO (12:21)
[2018-05-12 16:00] VITALS: BP 119/62
--- NOTE | 2018-05-12 17:30 | NUR ---
MS DYE BECK REEL OPERATOR NOTES PT WAS DISCHARGED FROM FACILITY IN STABLE CONDITION. REPORT CALLED AND GIVEN TO ROSE ALL NEEDS WERE MET DURING SHIFT AND ORDERS CARRIED OUT ACCORDINGLY. ALL DUE MEDS GIVEN. WOUND AND SKIN CARE RENDERED. IV SUCCESSFULLY REMOVED WITH NO COMPLICATIONS AND CATHETER TIP INTACT. PT SIGNED ALL D/C PAPERWORK AND COPIES MADE AND PLACED IN PT'S CHART. ALL BELONGING VERIFIED PRIOR TO D/C. ELECTROLYTES REPLACED THROUGHOUT SHIFT. PT REFUSED FLU/PNA VACCINES PRIOR TO D/C STATING THAT SHE WANTS TO RECEIVE THEM WHEN SHE FEELS BETTER. D/C PHOTOS TAKEN AND PLACED IN PT'S CHART. SHE WAS SAFELY TRANSFERRED FROM [facility] TO [facility] AND LEFT VIA AMBULANCE TRANSPORT
== END 2018-05-12 17:30 | DRG 423 ==
LOC: ER 16:39 → MED 19:55 → TELE 20:36 → MED 05-10 08:56
PROC: 0JBF0ZZ Excision of Left Upper Arm Subcutaneous Tissue and Fascia, Open Approach (ICD-10-PCS; principal; 2018-05-11)
DX: K70.9 Alcoholic liver disease, unspecified (principal); D61.89 Other specified aplastic anemias and other bone marrow failure syndromes; K83.1 Obstruction of bile duct; G92 Toxic encephalopathy; E87.1 Hypo-osmolality and hyponatremia; N17.9 Acute kidney failure, unspecified; D68.9 Coagulation defect, unspecified; M84.48XA Pathological fracture, other site, initial encounter for fracture; M48.02 Spinal stenosis, cervical region; D69.6 Thrombocytopenia, unspecified; K74.60 Unspecified cirrhosis of liver; Z79.899 Other long term (current) drug therapy; D72.819 Decreased white blood cell count, unspecified; I12.9 Hypertensive chronic kidney disease with stage 1 through stage 4 chronic kidney disease, or unspecified chronic kidney disease; N18.9 Chronic kidney disease, unspecified; R29.6 Repeated falls; S21.202A Unspecified open wound of left back wall of thorax without penetration into thoracic cavity, initial encounter; S41.102A Unspecified open wound of left upper arm, initial encounter; S81.002A Unspecified open wound, left knee, initial encounter; S71.101A Unspecified open wound, right thigh, initial encounter; X58.XXXA Exposure to other specified factors, initial encounter; Y92.9 Unspecified place or not applicable; Z87.891 Personal history of nicotine dependence; W19.XXXA Unspecified fall, initial encounter; F10.10 Alcohol abuse, uncomplicated; Y90.0 Blood alcohol level of less than 20 mg/100 ml
CPT/HCPCS: 36415; 70450-TC; 71111-TC; 72125-TC; 80048-TC; 80061-TC; 80076-TC; 80305; 81000-TC; 82140-TC; 82962-TC; 83735-TC; 84100-TC; 84443-TC; 85025-TC; 85730-TC; 87081-TC; 93307-TC; 95819-TC; A4606; A6253; A6403; G0378; G0480; J3475; J7060; Z7610

== ENCOUNTER 2018-10-08 17:03 | Inpatient (IN) | payer MEDICARE, BC ==
[~2018-10-08] VITALS: Ht 171.4 cm; Wt 62.9 kg
[~2018-10-08 17:03] MED LIST changes: -ACET1TAB12 PO; -BACL10TA PO; -FURO20TA4 PO; +GABA100C PO; -HYDR-3024 PO; +HYDR-3972 PO; -HYDR-4209 PO; +LACT10SO6 PO
--- NOTE | 2018-10-08 17:20 | NUR ---
patient presented to the ER BIBRA c/o headache since 12 noon. On room air, breathing evenly and unlabored. Connected to the monitor and pulse ox. kept comfortable. will continue to monitor accordingly.
[2018-10-08] MEDS ORDERED: METOCLOPRAMIDE HCL 10 MG/2 ML VIAL ONE (18:18)
[2018-10-08] MEDS ORDERED: METOCLOPRAMIDE HCL 10 MG/2 ML VIAL IV ONE (18:30)
[2018-10-08 18:31] LABS: BASOPHILS % (AUTO) 0.6 % (0.0-2.0); EOSINOPHILS % (AUTO) 1.3 % (0.0-6.0); HEMATOCRIT 39 % (33-45); LYMPHOCYTES # (AUTO) 0.8 /CMM (0.8-4.8); MEAN CORPUSCULAR HGB CONC 34 g/dl (31.0-36.0); MEAN CORPUSCULAR VOLUME 100 fL (82-100); MONOCYTES # (AUTO) 0.5 /CMM (0.1-1.30); MONOCYTES % (AUTO) 11.4 % (2.0-12.0); NEUTROPHILS # (AUTO) 2.9 /CMM (1.8-8.9); NEUTROPHILS % (AUTO) 67.7 % (43.0-81.0); PLATELET COUNT (AUTO) 72 /CMM (150-450); RED BLOOD CELL COUNT(AUTO) 3.88 MIL/uL (4.0-5.2); WHITE BLOOD COUNT (AUTO) 4.3 K/uL (4.3-11.0)
[2018-10-08 18:56] LABS: CALCIUM, SERUM 9.9 mg/dL (8.5-10.1); CARBON DIOXIDE 25 mmol/L (21-32); CHLORIDE 102 mmol/L (98-107); CREATININE 1.2 mg/dL (0.6-1.3); GLUCOSE 102 mg/dL (74-106); POTASSIUM 4.7 mmol/L (3.5-5.1); SODIUM SERUM 137 mmol/L (136-145); UREA NITROGEN, BLOOD 16 mg/dL (7-18)
[2018-10-08 19:05] LABS: CHOLESTEROL 200 mg/dL (<200); HDL CHOLESTEROL 66 mg/dL (40-60); LDL 115 mg/dL (0-99); TRIGLYCERIDES 141 mg/dL (30-150)
--- NOTE | 2018-10-08 19:28 | NUR ---
PT VERBALIZES SHE IS IN SEVERE HEADACHE, MADE MD AWARE. MD IS WAITING FOR CT RESULTS BEFORE GIVING MEDICATIONS. MADE PT AWARE.
[2018-10-08] MEDS ORDERED: PROCHLORPERAZINE EDISYLATE 10 MG/2 ML VIAL IVP ONE (20:00)
[2018-10-08] MEDS ORDERED: diphenhydrAMINE HCL 50 MG/ML VIAL IV ONE (20:00)
[2018-10-08] MEDS ORDERED: MORPHINE SULFATE INJ 2 MG/ML DISP.SYRIN IV ONE (20:00)
[2018-10-08] MEDS ORDERED: diphenhydrAMINE HCL 50 MG/ML VIAL ONE (20:08)
[2018-10-08] MEDS ORDERED: PROCHLORPERAZINE EDISYLATE 10 MG/2 ML VIAL ONE (20:08)
[2018-10-08] MEDS ORDERED: MORPHINE SULFATE INJ 2 MG/ML DISP.SYRIN ONE (20:08)
[2018-10-08] MEDS ORDERED: IOHEXOL-350 100 ML VIAL IV ONE (20:12)
[2018-10-08] MEDS ORDERED: CT SWABBABLE VALVE TRANS SET 1 EA INFUS.SET MC ONE (20:12)
[2018-10-08] MEDS ORDERED: IV NS 0.9% 250 ML IV ONE (20:12)
--- NOTE | 2018-10-08 20:15 | NUR ---
WHEELED OUT FOR CT SCAN
--- NOTE | 2018-10-08 21:42 | NUR ---
PT IN BED, STILL HAVING SEVERE HEADACHE, HOOKED TO MONITOR, NAD. WILL CONTINUE TO MONITOR.
[2018-10-08] MEDS ORDERED: CEFTRIAXONE 1GM BAG (ER ONLY) 1 GM/50 ML PIGGYBACK IV ONE (22:00)
[2018-10-08] MEDS ORDERED: CEFTRIAXONE 1GM BAG (ER ONLY) 50 ML IV ONE (22:10)
[2018-10-08] MEDS ORDERED: IV NS 0.9% 1,000 ML IV PRN (22:32)
[2018-10-08] MEDS ORDERED: HYDROCODONE/APAP 10/325MG 1 EA TABLET ONE (22:47)
--- NOTE | 2018-10-08 22:50 | NUR ---
PT VERBALIIZES THAT MORPHINE 2MG IVP DID NOT TAKE EFFECT. MD MADE AWARE, RECEIVED VERBAL ORDER OF NORCO 10-325 MG PO.
[2018-10-08] MEDS ORDERED: ZOLPIDEM TARTRATE 5 MG TABLET PO PRN (23:00)
[2018-10-08] MEDS ORDERED: HYDROCODONE/APAP 10/325MG 1 EA TABLET PO PRN (23:00)
[2018-10-08] MEDS ORDERED: ENOXAPARIN SODIUM 40 MG/0.4 ML DISP.SYRIN SQ SCH (23:00)
[2018-10-08] MEDS ORDERED: MAGNESIUM HYDROXIDE 30 ML UDC PO PRN (23:00)
[2018-10-08] MEDS ORDERED: MAG HYDROX/AL HYDROX/SIMETH 30 ML UDC PO PRN (23:00)
[2018-10-08] MEDS ORDERED: Z GUARD REMEDY 2 OZ OINT TP PRN (23:00)
[2018-10-08] MEDS ORDERED: ONDANSETRON HCL/PF 4 MG/2 ML VIAL IVP PRN (23:00)
[2018-10-08] MEDS ORDERED: HYDROCODONE/APAP 5/325MG 1 EACH TABLET PO PRN (23:00)
--- NOTE | 2018-10-08 23:00 | NUR ---
REPORT GIVEN TO ROSENDO PABLO FOR MEGHANN
--- NOTE | 2018-10-08 23:50 | NUR ---
MEDIA SERVICES DIRECTORGLAZE MIXER NOTES Patient came to unit via gurney, alert, oriented x 4. Breathing even and unlabored. Not in any distress. Still complaining of severe headache. IV line on LAC g#20 intact and patent. Tele monitor in place, ST 99- 103 with PAC's. Skin assessment done. No open wound but noted redness and bruises resulting from a fall last week. Pictures attached to chart. Oriented to call blount, placed within easy reach. Bed in low, locked position. Encouraged to call for assistance. Will continue to monitor accordingly.
--- NOTE | 2018-10-09 00:20 | NUR ---
RN NOTES PRODUCTION SANITIZER Malini at patient's bedside. Clarified with her the Lovenox 40mg order with platelet count of 72. As per Malini,"It's fine. Still give it."
[2018-10-09 00:25] VITALS: BP 137/76
[2018-10-09] MEDS: LACTULOSE 10 G/15 ML UDC (PYXIS) PO SCH ×4 (00:42→17:56)
[2018-10-09] MEDS ORDERED: KETOROLAC TROMETHAMINE INJ 30 MG/ML VIAL IM PRN (01:00)
[2018-10-09] MEDS ORDERED: ENOXAPARIN SODIUM 40 MG/0.4 ML DISP.SYRIN SQ ONE (01:00)
--- NOTE | 2018-10-09 01:16 | NUR ---
RN Notes Pharmacy called, lovenox has been discontinued by DIE STORAGE CLERK Malini after Lovenox was given. Malini informed. As per Malini, "It's ok. Don't give it going forward. Keep the order for lovenox discontinued."
--- NOTE | 2018-10-09 01:44 | NUR ---
RN NOTES Received order of Fioricet tablet PRN q6H for migraine. Noted and carried out
[2018-10-09] MEDS ORDERED: BUTALB/APAP/CAFFEINE 1 EACH TABLET ONE (02:05)
[2018-10-09] MEDS: BUTALB/APAP/CAFFEINE 1 EACH TABLET PO PRN ×4 (02:12→20:40)
--- NOTE | 2018-10-09 06:40 | NUR ---
LEAF TINNER CLOSING NOTES Patient in bed, alert, oriented x 4. Not in any distress. Tele monitor in place, sinus rhythm 92. Peripheral IV infusing at 75mL/hr. No acute changes overnight. All needs attended to. All due medications given as ordered. Safety precautions in place; call blount within reach. Bed in low, locked position. Will endorse MEGHANN to oncoming RN.
[2018-10-09 07:29] LABS: BASOPHILS % (AUTO) 0.5 % (0.0-2.0); EOSINOPHILS % (AUTO) 2.2 % (0.0-6.0); HEMATOCRIT 36 % (33-45); HEMOGLOBIN 12.2 g/dL (11.5-14.8); MEAN CORPUSCULAR HGB CONC 34 g/dl (31.0-36.0); MEAN CORPUSCULAR VOLUME 100 fL (82-100); MONOCYTES # (AUTO) 0.4 /CMM (0.1-1.30); NEUTROPHILS # (AUTO) 1.8 /CMM (1.8-8.9); NEUTROPHILS % (AUTO) 55.3 % (43.0-81.0); PLATELET COUNT (AUTO) 60 /CMM (150-450); RED BLOOD CELL COUNT(AUTO) 3.58 MIL/uL (4.0-5.2); WHITE BLOOD COUNT (AUTO) 3.3 K/uL (4.3-11.0)
--- NOTE | 2018-10-09 07:30 | NUR ---
emergency medicine nurse practitioner Opening Notes Patient asleep, resting in bed. Semi-Fowlers position. Alert and oriented x4, able to make needs known. No complaints of pain at this time. Respirations even and unlabored on room air, no acute distress noted. External cardiac cath rn to the chest wall, currently normal sinus rhythm at 90 bpm. Peripheral IV to the right arm 20 gauge, intact, patent and infusing fluids. Updated patient on current plan of care and safety measures. Safety and fall precautions in place: bed in lowest and locked position, side rails up x2, bed alarm on, call light and personal possessions within reach. Will continue to monitor and intervene as needed.
[2018-10-09 07:47] VITALS: BP 147/68
[2018-10-09 07:48] LABS: CARBON DIOXIDE 24 mmol/L (21-32); CHLORIDE 105 mmol/L (98-107); GLUCOSE 86 mg/dL (74-106); MAGNESIUM 1.4 mg/dL (1.8-2.4); PHOSPHORUS 4.3 mg/dL (2.5-4.9); POTASSIUM 4.6 mmol/L (3.5-5.1); SODIUM SERUM 140 mmol/L (136-145); UREA NITROGEN, BLOOD 15 mg/dL (7-18)
[2018-10-09 07:50] LABS: CHOLESTEROL 170 mg/dL (<200); HDL CHOLESTEROL 61 mg/dL (40-60); LDL 103 mg/dL (0-99); THYROID STIMULATING HORMONE 2.111 uIU/mL (0.358-3.74); TRIGLYCERIDES 69 mg/dL (30-150)
[2018-10-09 08:00] VITALS: BP 147/68
[2018-10-09] MEDS: FOLIC ACID 1 MG TABLET PO SCH (08:25)
[2018-10-09] MEDS: SPIRONOLACTONE 25 MG TABLET PO SCH (08:25)
[2018-10-09] MEDS: THIAMINE HCL 100 MG TABLET PO SCH (08:25)
[2018-10-09] MEDS: FERROUS SULFATE (325 MG) 325 MG/TAB TABLET PO SCH (08:25)
[2018-10-09] MEDS: PANTOPRAZOLE 40 MG TABLET.DR PO SCH (08:25)
[2018-10-09] MEDS: CHOLECALCIFEROL 1,000 UNIT TABLET (VIT D3) PO SCH (08:25)
[2018-10-09] MEDS: GABAPENTIN 100 MG CAPSULE PO SCH ×3 (08:25→16:24)
[2018-10-09] MEDS: CYANOCOBALAMIN 500 MCG TABLET PO SCH (08:26)
[2018-10-09] MEDS ORDERED: COD LIVER OIL PO SCH (09:00)
[2018-10-09 09:02] LABS: BAND % (MANUAL) 1 % (0.0-5.0); EOSINOPHILS % (MANUAL) 1 % (0-4); LYMPHOCYTES % (MANUAL) 29 % (16-48); MONOCYTES % (MANUAL) 11 % (0-11.0); NEUTROPHILS % (MANUAL) 58 (42-76)
[2018-10-09] MEDS ORDERED: MAGNESIUM OXIDE 400 MG TABLET PO ONE (12:00)
[2018-10-09] MEDS ORDERED: CEFTRIAXONE 1 G in IV D5W 50 ML IV SCH ×2 (15:00→21:00)
[2018-10-09 16:00] VITALS: BP 129/61
--- NOTE | 2018-10-09 18:29 | NUR ---
MS RN Closing Notes Patient awake, sitting in chair. Semi-Fowlers position. Alert and oriented x4, able to make needs known. No complaints of pain at this time. Respirations even and unlabored on room air, no acute distress noted. Peripheral IV to the right arm 20 gauge, intact, patent and infusing fluids. Updated patient on current plan of care and safety measures. Safety and fall precautions in place: bed in lowest and locked position, side rails up x2, bed alarm on, call light and personal possessions within reach. Due medications given as ordered. Refused doses of Gabapentin and Lactuose this shift. Educated about risks and benefits of medications, continued refusal. Will endorse to trucking manager RN for continuity of care.
--- NOTE | 2018-10-09 19:15 | NUR ---
RN Notes Received patient awake, sitting on bed, on room air and tolerated well. Patient is alert and oriented x4, denies any pain and discomfort at this time. IV access on left AC patent and intact with ongoing IVF infusing well. Safety measures and fall precaution in place. Plan of care discussed with the patient and verbalized understanding. Will continue to monitor pt.
--- NOTE | 2018-10-09 20:40 | NUR ---
RN Notes Patient complains of migraine, Fioricet tab given. Will continue to monitor.
[2018-10-09 20:55] VITALS: BP 129/74
[2018-10-09 22:00] VITALS: BP 129/74
[2018-10-10] MEDS: BUTALB/APAP/CAFFEINE 1 EACH TABLET PO PRN (02:57)
--- NOTE | 2018-10-10 02:57 | NUR ---
RN Notes Patient complains of migraine, Fioricet tab given. Will continue to monitor.
[2018-10-10] MEDS: LACTULOSE 10 G/15 ML UDC (PYXIS) PO SCH ×3 (06:00→11:15)
--- NOTE | 2018-10-10 07:07 | NUR ---
RN Notes Patient wake most of the night. Vital signs stable. Migraine managed with Fioricet tab. Denies nausea and vomiting. Voiding well. No significant change in condition noted. Will endorse to morning RN.
--- NOTE | 2018-10-10 07:08 | NUR ---
WOUND CARE CONSULT WOUND CARE RECEIVED CONSULT FOR SKIN ISSUES. WOUND CARE WILL DEFER CONSULT TO PLASTIC SURGICAL TEAM WHO ARE CURRENTLY FOLLOWING. PATIENT WITH MEGHAN AT 20, WILL SEE PRN.
[2018-10-10 07:27] LABS: CARBON DIOXIDE 24 mmol/L (21-32); CHLORIDE 108 mmol/L (98-107); GLUCOSE 97 mg/dL (74-106); POTASSIUM 4.4 mmol/L (3.5-5.1); SODIUM SERUM 142 mmol/L (136-145); UREA NITROGEN, BLOOD 14 mg/dL (7-18)
[2018-10-10 07:49] LABS: MAGNESIUM 1.1 mg/dL (1.8-2.4)
--- NOTE | 2018-10-10 07:52 | NUR ---
MS RN Opening Notes Patient asleep, resting in bed. Semi-Fowlers position. Alert and oriented x4, able to make needs known. No complaints of pain at this time. Respirations even and unlabored on room air, no acute distress noted. Peripheral IV to the right arm 20 gauge, intact, patent and saline locked. Patient tolerating oral fluids and foods. Updated patient on current plan of care and safety measures. Safety and fall precautions in place: bed in lowest and locked position, side rails up x2, bed alarm on, call light and personal possessions within reach. Will continue to monitor and intervene as needed.
[2018-10-10] MEDS: PANTOPRAZOLE 40 MG TABLET.DR PO SCH (08:38)
[2018-10-10] MEDS: FERROUS SULFATE (325 MG) 325 MG/TAB TABLET PO SCH (08:38)
[2018-10-10] MEDS: SPIRONOLACTONE 25 MG TABLET PO SCH (08:38)
[2018-10-10] MEDS: CHOLECALCIFEROL 1,000 UNIT TABLET (VIT D3) PO SCH (08:39)
[2018-10-10] MEDS: CYANOCOBALAMIN 500 MCG TABLET PO SCH (08:39)
[2018-10-10] MEDS: GABAPENTIN 100 MG CAPSULE PO SCH ×2 (08:39→12:08)
[2018-10-10] MEDS: FOLIC ACID 1 MG TABLET PO SCH (08:39)
[2018-10-10] MEDS: THIAMINE HCL 100 MG TABLET PO SCH (08:39)
[2018-10-10] MEDS: Magnesium 1GM/D5W 100ML PREMIX 100 ML IV SCH ×2 (11:00→11:16)
--- NOTE | 2018-10-10 11:00 | NUR ---
Dr. De Luna ordered Magnesium replacement via intravenous route for patient's current Magnesium level. However, patient is set for discharge and peripheral IV has been removed and patient is currently dressed. Educated patient about risks and benefits of recommended ordered Magnesium replacement via intravenous route, however, patient currently refusing reinsertion of peripheral IV. States she has a normal low level of magnesium normally and her primary doctors are aware of this. Also takes oral magnesium supplements by mouth everyday (500 mg daily). She says she will take a magnesium supplement by mouth prior to leaving hospital. Will page Dr. De Luna for further instructions.
[2018-10-10] MEDS ORDERED: MAGNESIUM OXIDE 400 MG TABLET PO ONE (12:00)
--- NOTE | 2018-10-10 12:00 | NUR ---
Paged Dr. De Luna by [facility] Exchange protocol about patient refusal of IV magnesium supplement. Gave verbal orders for magnesium oxide 800 mg PO once now for replacement supplement. Additionally, gave orders to instruct patient to increase her over the counter dosage of magnesium from 500 mg to 800 mg by mouth daily. Read-back and confirmed orders with MD. Cleared to proceed with discharge once patient has taken supplement. Orders noted and carried out.
--- NOTE | 2018-10-10 12:45 | NUR ---
MS coagulant dipper Notes Patient currently alert and oriented x4, able to make needs known. No complaints of pain at this time. Respirations even and unlabored on room air, no acute distress noted. Peripheral IV to the right arm 20 gauge removed at 1000 AM with catheter tip intact. No redness, swelling or bleeding of the site noted. Patient tolerating oral fluids and foods. Ambulates with steady gait and a cane (home DME). Patient refused follow-up skin assessment photos, states she does not need additional photos. No open wounds. Patient discharged with all personal belongings including clothing, home medications and valuables as noted on belongings form, verified with signature. Discharge instructions and Exitcare provided to patient, including prescription given to patient and orders for 800 mg magnesium supplement by mouth daily over the counter, verbalized understanding and acknowledged via signature on discharge form. Copies placed in chart. Accompanied to front lobby of hospital by wheelchair by JOSE RAFAEL Saenz Patient left by private ride in stable condition. Addendum: 10/10/18 at 1312 by NIK SEYMOUR RN ID band removed from patient.
== END 2018-10-10 12:45 | disposition home or self-care (01) | DRG 152 ==
LOC: ER 17:09 → MED 22:10 → TELE 23:13 → MED 10-09 10:52
PROVIDERS: ADMIT Registered Nurse; ATTEND Internal Medicine
DX: J01.00 Acute maxillary sinusitis, unspecified (principal); G92 Toxic encephalopathy; I50.32 Chronic diastolic (congestive) heart failure; D68.59 Other primary thrombophilia; G43.901 Migraine, unspecified, not intractable, with status migrainosus; I16.0 Hypertensive urgency; I11.0 Hypertensive heart disease with heart failure; Z79.899 Other long term (current) drug therapy; I10 Essential (primary) hypertension; E78.5 Hyperlipidemia, unspecified; K74.60 Unspecified cirrhosis of liver; Z87.891 Personal history of nicotine dependence; F10.10 Alcohol abuse, uncomplicated; K76.9 Liver disease, unspecified; D69.6 Thrombocytopenia, unspecified; I65.23 Occlusion and stenosis of bilateral carotid arteries; Z91.81 History of falling; D72.819 Decreased white blood cell count, unspecified
CPT/HCPCS: 36415; 70450-TC; 70496-TC; 70498-TC; 71045-TC; 80048-TC; 80061-TC; 82962-TC; 83735-TC; 84100-TC; 84443-TC; 84484-TC; 85025-TC; 85730-TC; 87040-TC; 87081-TC; 93880-TC; A4216; G0378; J0696; J0780; J1200; J1650; J2270; J2765; J7030; J7050; J7060; Q9967

== ENCOUNTER 2021-07-15 14:04 | Emergency (ER) | payer MEDICARE, BC ==
[~2021-07-15] VITALS: Ht 170.2 cm; Wt 67.1 kg
[~2021-07-15 14:04] MED LIST changes: +COD1CAPS15 PO; -COD1CAPS6 PO; -PANT40TA4 PO; +PANT40TA49 PO
--- NOTE | 2021-07-15 14:58 | NUR ---
CALLED TO TRIAGE,PATIENT NOT READY
[2021-07-15 15:48] VITALS: BP 146/77
--- NOTE | 2021-07-15 17:22 | NUR ---
Patient discharged to home in stable condition. Written and verbal after care instructions given. Patient verbalizes understanding of instruction.
== END 2021-07-15 17:24 | disposition home or self-care (01) ==
LOC: ER 16:34
DX: M25.572 Pain in left ankle and joints of left foot (principal); Z79.899 Other long term (current) drug therapy
CPT/HCPCS: 73610-TC

== ENCOUNTER 2022-10-20 03:02 | Inpatient (IN) | payer MEDICARE, BC ==
[~2022-10-20] VITALS: Ht 165.1 cm; Wt 59.9 kg
--- NOTE | 2022-10-20 03:20 | NUR ---
[id number] WITH CC OF INVOLUNTARY MOVEMENT OF EXTREMITIES STARTED AT 2AM. PT IS AAO X 4, BREATHING UNLABORED, WITH NOTICEABLE INVOLUNTARY MOVEMENTS OF THE HEAD, B ARMS AND LEGS. PT ATTACHED TO MONITOR AND PULSE OX. AWAITING MD OLGUIN
[2022-10-20] MEDS ORDERED: BACLOFEN (10 MG) 10 MG TABLET PO ONE (03:30)
[2022-10-20] MEDS ORDERED: BACLOFEN (10 MG) 10 MG TABLET ONE (03:39)
--- NOTE | 2022-10-20 03:40 | NUR ---
IV LINE STARTED AT RAC 20G, BLOOD DRAWN AND SENT TO LAB
--- NOTE | 2022-10-20 03:46 | NUR ---
PT TAKEN TO CT VIA SANGEETHA
[2022-10-20 03:53] LABS: BASOPHILS % (AUTO) 0.8 % (0.0-2.0); EOSINOPHILS % (AUTO) 3.3 % (0.0-6.0); HEMATOCRIT 32 % (33-45); LYMPHOCYTES # (AUTO) 0.3 K/uL (0.8-4.8); LYMPHOCYTES % (AUTO) 13.2 % (20.0-44.0); MEAN CORPUSCULAR HGB CONC 31 g/dl (31.0-36.0); MEAN CORPUSCULAR VOLUME 80 fL (82-100); MONOCYTES # (AUTO) 0.3 K/uL (0.1-1.30); MONOCYTES % (AUTO) 11.6 % (2.0-12.0); NEUTROPHILS # (AUTO) 1.8 K/uL (1.8-8.9); NEUTROPHILS % (AUTO) 71.1 % (43.0-81.0); PLATELET COUNT (AUTO) 66 K/uL (150-450); RED BLOOD CELL COUNT(AUTO) 3.99 MIL/uL (4.0-5.2); WHITE BLOOD COUNT (AUTO) 2.5 K/uL (4.3-11.0)
[2022-10-20 04:03] LABS: CARBON DIOXIDE 30 mmol/L (21-32); CHLORIDE 103 mmol/L (98-107); GLUCOSE 103 mg/dL (74-106); POTASSIUM 3.2 mmol/L (3.5-5.1); SODIUM SERUM 140 mmol/L (136-145); UREA NITROGEN, BLOOD 21 mg/dL (7-18)
[2022-10-20 04:08] LABS: ALANINE AMINOTRANSFERASE 14 U/L (12-78); ALBUMIN 3.9 g/dL (3.4-5.0); ALKALINE PHOSPHATASE 59 U/L (46-116); ASPARTATE AMINOTRANSFERASE 26 U/L (15-37); BILIRUBIN,DIRECT 0.3 mg/dL (0.0-0.2); BILIRUBIN,TOTAL 0.9 mg/dL (0.2-1.0); TOTAL PROTEIN, SERUM 7.2 g/dL (6.4-8.2)
--- NOTE | 2022-10-20 04:18 | NUR ---
COVID ANTIGEN AND URINE COLLECTED, SENT TO LAB
[2022-10-20 04:53] LABS: BACTERIA,URINE Rare /HPF (None Seen); BILIRUBIN,URINE NEGATIVE (NEGATIVE); COLOR,URINE YELLOW (YELLOW); LEUKOCYTE ESTERASE ,URINE NEGATIVE (NEGATIVE); NITRITE, URINE NEGATIVE (NEGATIVE); PROTEIN,URINE NEGATIVE (NEGATIVE); UGLUCOSE NEGATIVE (NEGATIVE); UROBILINOGEN,URINE 0.2 EU/dL (0.2); WBC,URINE 0-2 /HPF (0-3)
[2022-10-20 04:54] LABS: SQUAMOUS EPITHELIAL CELL,UR Few /HPF (None Seen)
--- NOTE | 2022-10-20 05:45 | NUR ---
[facility] PAGED
[2022-10-20] MEDS ORDERED: ZOLPIDEM TARTRATE 5 MG TABLET PO PRN (06:00)
[2022-10-20] MEDS ORDERED: ACETAMINOPHEN 325 MG TABLET PO PRN (06:00)
[2022-10-20] MEDS ORDERED: ONDANSETRON HCL/PF 4 MG/2 ML VIAL IVP PRN (06:00)
--- NOTE | 2022-10-20 08:01 | NUR ---
GOT BED 327-2
--- NOTE | 2022-10-20 08:12 | NUR ---
REPORT GIVEN TO NURSE JAMSHID FOR MEGHANN
--- NOTE | 2022-10-20 08:12 | NUR ---
THE PATIENT IS TRANSFERED TO ROOM 327-2 IN STABLE CONDITION AND PER POLICY.
[2022-10-20] MEDS: GABAPENTIN 100 MG CAPSULE PO SCH ×4 (09:00→18:18)
--- NOTE | 2022-10-20 09:00 | NUR ---
ms rn received a new admission from ed, 82 year old female,awake,alert,oriented x4,came in with cc of tremors,denies pain at this time at this time,patient is depress, on room air w/ 100% saturation, ambulatory with assist, was seen by Malini iraheta w/ orders made and carried out.will monitor patient.
[2022-10-20 09:37] VITALS: BP 137/77
[2022-10-20 10:01] LABS: EOSINOPHILS % (MANUAL) 1 % (0-4); LYMPHOCYTES % (MANUAL) 13 % (16-48); METAMYELOCYTES % 1 % (0-0); MONOCYTES % (MANUAL) 7 % (0-11.0); NEUTROPHILS % (MANUAL) 78 (42-76)
[2022-10-20] MEDS ORDERED: POTASSIUM CHLORIDE 20 MEQ TAB.PRT.SR PO ONE ×2 (11:30→14:30)
[2022-10-20] MEDS ORDERED: METO25TA20 PO (11:51)
[2022-10-20] MEDS ORDERED: ALLO300T2 PO (11:51)
[2022-10-20] MEDS ORDERED: PREG100C PO (11:51)
[2022-10-20] MEDS ORDERED: CALC1TAB30 PO (11:51)
[2022-10-20] MEDS ORDERED: TRAZ-257 PO (11:51)
[2022-10-20] MEDS ORDERED: ASCO-495 PO (11:51)
[2022-10-20] MEDS ORDERED: HYDR4TAB57 PO (11:51)
[2022-10-20] MEDS ORDERED: ALEN70TA80 PO (11:51)
[2022-10-20] MEDS ORDERED: LACT10SO58 PO (11:51)
[2022-10-20] MEDS ORDERED: ATOR10TA PO (11:51)
[2022-10-20] MEDS ORDERED: MIDO2.5T PO (11:51)
[2022-10-20] MEDS ORDERED: BACL20TA PO (11:51)
[2022-10-20] MEDS ORDERED: FURO-145 PO (11:51)
[2022-10-20] MEDS ORDERED: SPIR25TA6 PO (11:51)
[2022-10-20] MEDS ORDERED: METO25TA4 PO (11:51)
--- NOTE | 2022-10-20 12:00 | NUR ---
ms rn was seen by PT , walked w/ FWW, requires,moderate assist,noted to have wound at left ankle erom previous ankle surgery,records requested from [facility] [place] per BILLBOARD POSTER request, awaiting for fax .
[2022-10-20] MEDS: FERROUS SULFATE (325 MG) 325 MG/TAB TABLET PO SCH (14:02)
[2022-10-20] MEDS: LACTULOSE 10 G/15 ML UDC (PYXIS) PO SCH ×2 (14:02→18:00)
[2022-10-20] MEDS: CHOLECALCIFEROL 1,000 UNIT TABLET (VIT D3) PO SCH (14:02)
[2022-10-20] MEDS: FOLIC ACID 1 MG TABLET PO SCH (14:02)
[2022-10-20] MEDS: SPIRONOLACTONE 25 MG TABLET PO SCH (14:03)
[2022-10-20] MEDS: THIAMINE HCL 100 MG TABLET PO SCH (14:03)
[2022-10-20] MEDS: ENOXAPARIN SODIUM 40 MG/0.4 ML DISP.SYRIN SQ SCH (14:06)
[2022-10-20] MEDS: PANTOPRAZOLE 40 MG TABLET.DR PO SCH (14:07)
[2022-10-20 16:00] VITALS: BP 134/68
[2022-10-20] MEDS ORDERED: LACTULOSE 10 G/15 ML UDC (PYXIS) PO PRN (16:00)
[2022-10-20] MEDS ORDERED: MIDODRINE HCL 2.5 MG TABLET PO PRN (16:00)
[2022-10-20] MEDS ORDERED: SPIRONOLACTONE 25 MG TABLET PO PRN (16:00)
[2022-10-20] MEDS ORDERED: METOPROLOL TARTRATE 25 MG TABLET PO PRN (16:00)
[2022-10-20] MEDS: PREGABALIN 100 MG CAPSULE PO SCH (16:58)
[2022-10-20] MEDS: BACLOFEN (10 MG) 10 MG TABLET PO SCH ×2 (16:59→17:00)
[2022-10-20] MEDS ORDERED: VANCOMYCIN 1 GM in IV D5W 250 ML IV SCH (18:00)
[2022-10-20] MEDS: CEFEPIME 1 GM in IV D5W 50 ML IV SCH (18:18)
[2022-10-20] MEDS: MORPHINE SULFATE INJ 2 MG/ML DISP.SYRIN IV PRN (18:42)
--- NOTE | 2022-10-20 18:57 | NUR ---
ms rn on bed, medicated for pain, antibiotic started,all needs attended.
--- NOTE | 2022-10-20 19:30 | NUR ---
MS RN OPENING NOTE RECEIVED PT AWAKE IN BED. A/O X2-3 AND ABLE TO MAKE NEEDS KNOWN. PT ON O2 @ 2LPM VIA NC, TOLERATING WELL. BREATHING EVEN AND UNLABORED. NO SOB OR S/S OF RESPIRATORY DISTRESS. IV ACCESS RAC 20G, INTACT AND PATENT. SAFETY PRECAUTIONS IN PLACE. BED IN LOWEST LOCKED POSITION, HOB ELEVATED, SIDE RAILS UP X2, AND CALL LIGHT AND TABLE WITHIN REACH. ALL NEEDS MET AT THIS TIME.
[2022-10-20] MEDS: AMOX/CLAVULANATE 875 MG TABLET PO SCH (21:20)
[2022-10-20 22:10] VITALS: BP 126/60
--- NOTE | 2022-10-21 00:42 | NUR ---
RN NOTE PT REFUSED LACTULOSE AT THIS TIME. STATED " I WILL TAKE IT IN THE MORNING BUT I DONT WANT TO BE POOPING ALL NIGHT". EXPLAINED BENEFITS TO TAKING MEDICATION AND PT STILL REFUSED. ALL NEEDS MET AT THIS TIME.
[2022-10-21] MEDS: TRAZODONE 50 MG TABLET PO PRN (01:35)
[2022-10-21] MEDS: MORPHINE SULFATE INJ 2 MG/ML DISP.SYRIN IV PRN ×3 (04:23→21:43)
--- NOTE | 2022-10-21 04:23 | NUR ---
RN NOTE PT COMPLAINED OF NECK PAIN 03/08 AND REQUESTED MORPHINE. ADMINISTERED MORPHINE 2 MG FOR SEVERE PAIN ORDERED. MADE COMFORTABLE IN BED. ALL NEEDS MET AT THIS TIME.
[2022-10-21] MEDS: CEFEPIME 1 GM in IV D5W 50 ML IV SCH (05:37)
[2022-10-21] MEDS: LACTULOSE 10 G/15 ML UDC (PYXIS) PO SCH ×4 (05:55→17:20)
--- NOTE | 2022-10-21 06:33 | NUR ---
RN NOTE PT REFUSED FULL DOSE OF LACTULOSE. ADMINISTERED 10 MG AND THEN PT STATED " I WONT TAKE ANYMORE. THATS ALL I TAKE AT HOME". RETURNED REMAINING LACTULOSE TO [facility].
--- NOTE | 2022-10-21 06:42 | NUR ---
MS RN CLOSING NOTE PT AWAKE IN BED. A/O X2-3 AND ABLE TO MAKE NEEDS KNOWN. PT STABLE ON ROOM AIR. BREATHING EVEN AND UNLABORED. NO SOB OR S/S OF RESPIRATORY DISTRESS. IV ACCESS RAC 20G, INTACT AND PATENT. KEPT CLEAN AND DRY. ADMINISTERED MEDICATIONS ORDERED. SAFETY PRECAUTIONS IN PLACE AT ALL TIMES. BED IN LOWEST LOCKED POSITION, HOB ELEVATED, SIDE RAILS UP X2, AND CALL LIGHT AND TABLE WITHIN REACH. ALL NEEDS MET AT THIS TIME AND WILL ENDORSE TO ONCOMING NURSE FOR MEGHANN.
[2022-10-21 07:19] LABS: BASOPHILS % (AUTO) 0.5 % (0.0-2.0); EOSINOPHILS % (AUTO) 2.6 % (0.0-6.0); HEMATOCRIT 30 % (33-45); HEMOGLOBIN 9.5 g/dL (11.5-14.8); LYMPHOCYTES # (AUTO) 0.3 K/uL (0.8-4.8); LYMPHOCYTES % (AUTO) 19.3 % (20.0-44.0); MEAN CORPUSCULAR HGB CONC 32 g/dl (31.0-36.0); MEAN CORPUSCULAR VOLUME 80 fL (82-100); MONOCYTES # (AUTO) 0.2 K/uL (0.1-1.30); MONOCYTES % (AUTO) 13.8 % (2.0-12.0); NEUTROPHILS % (AUTO) 63.8 % (43.0-81.0); PLATELET COUNT (AUTO) 52 K/uL (150-450); RED BLOOD CELL COUNT(AUTO) 3.75 MIL/uL (4.0-5.2)
--- NOTE | 2022-10-21 07:30 | NUR ---
JUANITASURLigia RN OPENING NOTE RECEIVED PT AWAKE IN BED. A/O X2-3 AND ABLE TO MAKE NEEDS KNOWN. PT ON O2 @ 2LPM VIA NC, TOLERATING WELL. BREATHING EVEN AND UNLABORED. NO SOB OR S/S OF RESPIRATORY DISTRESS. CURRENT DIET TOLERATED WELL. IV ACCESS RAC 20G, INTACT AND PATENT. NO INFILTRATION NOTED. SAFETY PRECAUTIONS IN PLACE. BED IN LOWEST LOCKED POSITION, HOB ELEVATED, SIDE RAILS UP X2, AND CALL LIGHT AND TABLE WITHIN REACH. ALL NEEDS MET AT THIS TIME.
[2022-10-21 07:36] LABS: WHITE BLOOD COUNT (AUTO) 1.5 K/uL (4.3-11.0)
--- NOTE | 2022-10-21 07:40 | NUR ---
RECEIVED CRITICAL LAB WBC 1.5. FREDI MARES PURCHASING MANAGER/SALES NOTIFIED WITH NO NEW ORDER AT THIS TIME.
[2022-10-21 08:00] VITALS: BP 128/57
[2022-10-21 08:02] LABS: ALBUMIN 3.5 g/dL (3.4-5.0); BILIRUBIN,TOTAL 0.9 mg/dL (0.2-1.0); CALCIUM, SERUM 8.8 mg/dL (8.5-10.1); CREATININE 0.9 mg/dL (0.6-1.3); MAGNESIUM 1.6 mg/dL (1.8-2.4); PHOSPHORUS 3.1 mg/dL (2.5-4.9); POTASSIUM 4.1 mmol/L (3.5-5.1); TOTAL PROTEIN, SERUM 6.7 g/dL (6.4-8.2)
[2022-10-21] MEDS: PREGABALIN 100 MG CAPSULE PO SCH ×2 (08:30→17:19)
[2022-10-21] MEDS: CHOLECALCIFEROL 1,000 UNIT TABLET (VIT D3) PO SCH (08:30)
[2022-10-21] MEDS: PANTOPRAZOLE 40 MG TABLET.DR PO SCH (08:31)
[2022-10-21] MEDS: BACLOFEN (10 MG) 10 MG TABLET PO SCH ×3 (08:31→17:20)
[2022-10-21] MEDS: METOPROLOL SUCCINATE 25 MG TAB.SR.24H PO SCH (08:31)
[2022-10-21] MEDS: ATORVASTATIN 10 MG TABLET PO SCH (08:31)
[2022-10-21] MEDS: CYANOCOBALAMIN 500 MCG TABLET PO SCH (08:32)
[2022-10-21] MEDS: GABAPENTIN 100 MG CAPSULE PO SCH ×3 (08:32→17:19)
[2022-10-21] MEDS: CALCIUM CARB 600MG /VIT D 1 EACH TABLET PO SCH (08:33)
[2022-10-21] MEDS: SPIRONOLACTONE 25 MG TABLET PO SCH (08:33)
[2022-10-21] MEDS: THIAMINE HCL 100 MG TABLET PO SCH (08:33)
[2022-10-21] MEDS: FUROSEMIDE 20 MG TABLET PO SCH (08:33)
[2022-10-21] MEDS: FOLIC ACID 1 MG TABLET PO SCH (08:33)
[2022-10-21] MEDS: ALLOPURINOL 100 MG TABLET PO SCH (08:33)
[2022-10-21] MEDS: FERROUS SULFATE (325 MG) 325 MG/TAB TABLET PO SCH (08:33)
[2022-10-21] MEDS: AMOX/CLAVULANATE 875 MG TABLET PO SCH (08:47)
[2022-10-21] MEDS: ENOXAPARIN SODIUM 40 MG/0.4 ML DISP.SYRIN SQ SCH ×2 (09:00→10:15)
--- NOTE | 2022-10-21 09:02 | NUR ---
HELD LOVENOX FOR 9AM DUE TO LOW PLATELET
--- NOTE | 2022-10-21 10:15 | NUR ---
VERIFIED FREDI MARES SQUASH CENTRE MANAGER AT BEDSIDE WITH ORDER TO GIVE LOVENOX.
--- NOTE | 2022-10-21 11:24 | NUR ---
DR. FORD PSYCHIATRIST AT BEDSIDE
[2022-10-21] MEDS: Magnesium 1GM/D5W 100ML PREMIX 100 ML IV SCH ×2 (11:46→12:51)
--- NOTE | 2022-10-21 12:16 | NUR ---
LYNNE GAN FOR DR. COMER AT BEDSIDE.
--- NOTE | 2022-10-21 12:33 | NUR ---
STOOL SPECIMEN SENT TO LAB
[2022-10-21 12:34] LABS: D-DIMER 3.33 mg/L(FEU (0.17-0.50)
[2022-10-21 13:11] LABS: THYROID STIMULATING HORMONE 0.551 uIU/mL (0.358-3.74)
[2022-10-21 14:39] LABS: BAND % (MANUAL) 1 % (0.0-5.0); EOSINOPHILS % (MANUAL) 2 % (0-4); LYMPHOCYTES % (MANUAL) 20 % (16-48); MONOCYTES % (MANUAL) 7 % (0-11.0); NEUTROPHILS % (MANUAL) 70 (42-76)
[2022-10-21 15:16] LABS: OCCULT BLOOD STOOL NEGATIVE (NEGATIVE)
[2022-10-21 16:00] VITALS: BP 144/68
--- NOTE | 2022-10-21 18:47 | NUR ---
MS RN CLOSING NOTE PT AWAKE IN BED. A/O X2-3 AND ABLE TO MAKE NEEDS KNOWN. PT STABLE ON ROOM AIR. BREATHING EVEN AND UNLABORED. NO SOB OR S/S OF RESPIRATORY DISTRESS. IV ACCESS RAC 20G, INTACT AND PATENT. KEPT CLEAN AND DRY. NPO POST MIDNIGHT DUE TO US ABD IN AM. ADMINISTERED MEDICATIONS ORDERED.1800 LACTULOSE ON HELD DUE TO LOOSE STOOL. SAFETY PRECAUTIONS IN PLACE AT ALL TIMES. BED IN LOWEST LOCKED POSITION, HOB ELEVATED, SIDE RAILS UP X2, AND CALL LIGHT AND TABLE WITHIN REACH. ALL NEEDS MET AT THIS TIME AND WILL ENDORSE TO ONCOMING NURSE FOR MEGHANN.
--- NOTE | 2022-10-21 19:45 | NUR ---
MS RN NOTES RECEIVED ON BED SOUND ASLEEP.BREATHING REGULAR,NOT IN ANY FORM OF DISTRESS.SALINE LOCK RIGHT AC INTACT AND PATENT.ABLE TO AMBULATE WITH ASSIST WHEN AWAKE.WITH LEFT ANKLE CELLULITIS ELEVATED ON PILLOWS.FALL RISK,BED ON LOW POSITION AND LOCKED.BED ALARM,CALL LIGHT IN REACH,NEEDS ANTICIPATED.
[2022-10-21 20:00] VITALS: BP 135/62
--- NOTE | 2022-10-22 | NUR ---
MS RN NOTES REFUSED DOSE OF LACTULOSE THIS TIME,HAD 2 X BM ALREADY THIS SHIFT.
[2022-10-22] MEDS: TRAZODONE 50 MG TABLET PO PRN (01:03)
--- NOTE | 2022-10-22 01:03 | NUR ---
MS RN NOTES C/O INSOMNIA,TRAZODONE 100MG PO GIVEN ORDERED AND PER PATIENT REQUEST.
[2022-10-22] MEDS: MORPHINE SULFATE INJ 2 MG/ML DISP.SYRIN IV PRN ×4 (04:30→22:11)
--- NOTE | 2022-10-22 04:30 | NUR ---
MS RN NOTES HAVING PAIN 8/10 ON PAIN SCALE,MORPHINE 2MG IV GIVEN ORDERED.WILL MONITOR FOR EFFECTIVENESS.VITAL SIGNS STABLE.
[2022-10-22] MEDS: LACTULOSE 10 G/15 ML UDC (PYXIS) PO SCH ×4 (06:00→18:00)
--- NOTE | 2022-10-22 06:53 | NUR ---
MS RN NOTES SLEEP WITH INTERVALS,ABLE TO TRANSFER FROM BED TO BEDSIDE COMMODE.PAIN MANAGEMENT EFFECTIVE..IN NO ACUTE DISTRESS.
[2022-10-22 07:21] LABS: BASOPHILS % (AUTO) 0.5 % (0.0-2.0); EOSINOPHILS % (AUTO) 2.8 % (0.0-6.0); HEMATOCRIT 29 % (33-45); LYMPHOCYTES # (AUTO) 0.3 K/uL (0.8-4.8); LYMPHOCYTES % (AUTO) 17.6 % (20.0-44.0); MEAN CORPUSCULAR HGB CONC 31 g/dl (31.0-36.0); MEAN CORPUSCULAR VOLUME 80 fL (82-100); MONOCYTES # (AUTO) 0.2 K/uL (0.1-1.30); MONOCYTES % (AUTO) 12.3 % (2.0-12.0); NEUTROPHILS # (AUTO) 1.2 K/uL (1.8-8.9); NEUTROPHILS % (AUTO) 66.8 % (43.0-81.0); PLATELET COUNT (AUTO) 52 K/uL (150-450); RED BLOOD CELL COUNT(AUTO) 3.62 MIL/uL (4.0-5.2)
[2022-10-22 07:23] LABS: CALCIUM, SERUM 8.9 mg/dL (8.5-10.1); MAGNESIUM 1.9 mg/dL (1.8-2.4); PHOSPHORUS 3.1 mg/dL (2.5-4.9); POTASSIUM 3.5 mmol/L (3.5-5.1)
[2022-10-22 07:39] LABS: WHITE BLOOD COUNT (AUTO) 1.8 K/uL (4.3-11.0)
--- NOTE | 2022-10-22 07:42 | NUR ---
MS FOAMITE MIXER OPENING NOTE Patient received in bed, asleep. Pt is on room air with no s/s of SOB. IV on AC #20G. Patient is on NPO for ultrasound of the abdomen. Safety precaution maintained: bed in the lowest position, locked with SR x 2., bed alarm on. Call light within reach. Will continue to monitor
[2022-10-22 07:43] LABS: D-DIMER 3.73 mg/L(FEU (0.17-0.50)
[2022-10-22 08:06] LABS: IMMUNOGLOBULIN A, SERUM 484 mg/dL (64-422); IMMUNOGLOBULIN G, SERUM 1368 mg/dL (586-1602); IMMUNOGLOBULIN M, SERUM 133 mg/dL (26-217)
--- NOTE | 2022-10-22 08:16 | NUR ---
FABRICATION AND ASSEMBLY SUPERVISOR NOTE RECEIVED CALL FROM LAB ([facility]) CRITICAL VALUE WBC 1.8. FREDI ACOSTA BLADE SHARPENER NOTIFIED. NO NEW ORDERS AT THIS TIME.
[2022-10-22 08:33] VITALS: BP 111/45
[2022-10-22] MEDS: ENOXAPARIN SODIUM 40 MG/0.4 ML DISP.SYRIN SQ SCH (08:36)
[2022-10-22] MEDS: CYANOCOBALAMIN 500 MCG TABLET PO SCH (08:44)
[2022-10-22] MEDS: FOLIC ACID 1 MG TABLET PO SCH (08:46)
[2022-10-22] MEDS: CHOLECALCIFEROL 1,000 UNIT TABLET (VIT D3) PO SCH (08:46)
[2022-10-22] MEDS: ASCORBIC ACID 500 MG TABLET PO SCH (08:47)
[2022-10-22] MEDS: FERROUS SULFATE (325 MG) 325 MG/TAB TABLET PO SCH (08:47)
[2022-10-22] MEDS: CALCIUM CARB 600MG /VIT D 1 EACH TABLET PO SCH (08:48)
[2022-10-22] MEDS: ALLOPURINOL 100 MG TABLET PO SCH (08:50)
[2022-10-22] MEDS: PREGABALIN 100 MG CAPSULE PO SCH ×2 (08:51→16:28)
[2022-10-22] MEDS: FUROSEMIDE 20 MG TABLET PO SCH (08:51)
[2022-10-22] MEDS: GABAPENTIN 100 MG CAPSULE PO SCH ×3 (08:51→16:28)
[2022-10-22] MEDS: ATORVASTATIN 10 MG TABLET PO SCH (08:52)
[2022-10-22] MEDS: THIAMINE HCL 100 MG TABLET PO SCH (08:52)
[2022-10-22] MEDS: PANTOPRAZOLE 40 MG TABLET.DR PO SCH (08:52)
[2022-10-22] MEDS: SPIRONOLACTONE 25 MG TABLET PO SCH (08:53)
[2022-10-22 08:57] LABS: BAND % (MANUAL) 1 % (0.0-5.0); EOSINOPHILS % (MANUAL) 3 % (0-4); LYMPHOCYTES % (MANUAL) 21 % (16-48); MONOCYTES % (MANUAL) 10 % (0-11.0); NEUTROPHILS % (MANUAL) 65 (42-76)
[2022-10-22] MEDS: BACLOFEN (10 MG) 10 MG TABLET PO SCH ×3 (09:00→16:23)
[2022-10-22] MEDS: METOPROLOL SUCCINATE 25 MG TAB.SR.24H PO SCH (09:03)
--- NOTE | 2022-10-22 11:52 | NUR ---
MS SET UP MOLD TECHNICIAN NOTES Patient refused Lactulose medication. Stated she had loose stool.
--- NOTE | 2022-10-22 12:20 | NUR ---
MS CROZE CUTTER NOTES PATIENT REFUSED BACLOFEN. EXPLAINED BENEFITS OF MEDICATION. PATIENT STILL REFUSED.
[2022-10-22 16:06] VITALS: BP 107/55
[2022-10-22] MEDS: MIDODRINE HCL (5MG) 5 MG TABLET PO PRN (16:27)
--- NOTE | 2022-10-22 18:35 | NUR ---
MS INSULATOR TESTER NOTES PATIENT WAS TAKEN BY TRANSPORT TO MRI.
--- NOTE | 2022-10-22 19:05 | NUR ---
MS BRAILLE TEACHER CLOSING NOTE PATIENT IS STILL IN MRI, GAVE REPORT TO FINANCIAL SERVICES COUNSELOR NURSE FOR MEGHANN.
--- NOTE | 2022-10-22 19:35 | NUR ---
MS RN OPENING NOTES PATIENT CAME BACK FROM MRI AT 1930. PATIENT TRANSFERRED TO BED. PATIENT IS A/O TIMES 3. ABLE TO MAKE NEEDS KNOWN. NO PAIN NOTED. NO SOB NOTED. NO DISTRESS NOTED. USING BED SIDE COMMODE. IV ACCESS NOTED ON THE RAC # 20 INTACT AND PATENT. ALL NEEDS ATTENDED. ALL SAFETY MEASURES IN PLACE. BED LOCKED IN THE LOWEST POSITION . CALL LIGHT AND TABLE IN EASY REACH. SIDE RAILS UP TIMES 2. WILL CONTINUE TO MONITOR CLOSELY.
[2022-10-22 20:00] VITALS: BP 123/60
[2022-10-23] MEDS: TRAZODONE 50 MG TABLET PO PRN ×2 (01:08→22:26)
[2022-10-23] MEDS: MORPHINE SULFATE INJ 2 MG/ML DISP.SYRIN IV PRN ×4 (03:21→21:10)
[2022-10-23] MEDS: LACTULOSE 10 G/15 ML UDC (PYXIS) PO SCH ×4 (06:00→18:00)
--- NOTE | 2022-10-23 06:00 | NUR ---
RN NOTES PATIENT REFUSED LACTULOSE FOR 0000 AND 0600 AM. STATING SHE HAD DIARRHEA.
[2022-10-23 06:21] LABS: BASOPHILS % (AUTO) 0.8 % (0.0-2.0); HEMATOCRIT 27 % (33-45); HEMOGLOBIN 8.4 g/dL (11.5-14.8); LYMPHOCYTES # (AUTO) 0.4 K/uL (0.8-4.8); LYMPHOCYTES % (AUTO) 31.3 % (20.0-44.0); MEAN CORPUSCULAR HGB CONC 31 g/dl (31.0-36.0); MEAN CORPUSCULAR VOLUME 80 fL (82-100); MONOCYTES # (AUTO) 0.2 K/uL (0.1-1.30); MONOCYTES % (AUTO) 12.8 % (2.0-12.0); NEUTROPHILS # (AUTO) 0.7 K/uL (1.8-8.9); NEUTROPHILS % (AUTO) 51.1 % (43.0-81.0); RED BLOOD CELL COUNT(AUTO) 3.35 MIL/uL (4.0-5.2)
--- NOTE | 2022-10-23 06:25 | NUR ---
MS RN CLOSING NOTES PATIENT RESTING IN BED. PATIENT IS A/O TIMES 3. ABLE TO MAKE NEEDS KNOWN. NO PAIN NOTED. NO SOB NOTED. NO DISTRESS NOTED. USING BED SIDE COMMODE. IV ACCESS NOTED ON THE RAC # 20 INTACT AND PATENT. ALL DUE MEDS GIVEN ORDERED. ALL NEEDS ATTENDED. ALL SAFETY MEASURES IN PLACE. BED LOCKED IN THE LOWEST POSITION . CALL LIGHT AND TABLE IN EASY REACH. SIDE RAILS UP TIMES 2. WILL ENDORSE FOR MEGHANN.
[2022-10-23 07:00] VITALS: BP 113/62
--- NOTE | 2022-10-23 07:00 | NUR ---
MS WINDOWS DESKTOP SUPPORT OPENING NOTES PATIENT WAS RECEIVED IN BED, AWAKE, ALERT AOX3. ON ROOM AIR, NO S/S OF SOB.IV RAC GAG #20. SAFETY PRECAUTION MAINTAINED: BED IN THE LOWEST, LOCKED POSITION WITH SR X2. CALL LIGHT WITHIN REACH.
[2022-10-23 07:11] LABS: CALCIUM, SERUM 8.5 mg/dL (8.5-10.1); CREATININE 0.9 mg/dL (0.6-1.3); MAGNESIUM 1.5 mg/dL (1.8-2.4); PHOSPHORUS 4.2 mg/dL (2.5-4.9); POTASSIUM 3.6 mmol/L (3.5-5.1)
[2022-10-23 07:12] LABS: PLATELET COUNT (AUTO) 45 K/uL (150-450); WHITE BLOOD COUNT (AUTO) 1.3 K/uL (4.3-11.0)
--- NOTE | 2022-10-23 07:18 | NUR ---
RN NOTES SOC FROM LAB CALLED AND REPORTED CRITICAL LAB VALUE OF WBC=1.3 AND PLATELET COUNT OF 45. ENDORSED TO INCOMING SHIFT NURSE FOR FOLLOW UP.
--- NOTE | 2022-10-23 08:00 | NUR ---
RN NOTE Patient's WBC is 1.3 and Platelet is 45 today. Malini Mitchell TECHNOLOGY OFFICER notified. No new orders at this time.
[2022-10-23] MEDS: CYANOCOBALAMIN 500 MCG TABLET PO SCH (08:33)
[2022-10-23] MEDS: FERROUS SULFATE (325 MG) 325 MG/TAB TABLET PO SCH (08:33)
[2022-10-23] MEDS: FOLIC ACID 1 MG TABLET PO SCH (08:33)
[2022-10-23] MEDS: CHOLECALCIFEROL 1,000 UNIT TABLET (VIT D3) PO SCH (08:34)
[2022-10-23] MEDS: THIAMINE HCL 100 MG TABLET PO SCH (08:34)
[2022-10-23] MEDS: ATORVASTATIN 10 MG TABLET PO SCH (08:34)
[2022-10-23] MEDS: CALCIUM CARB 600MG /VIT D 1 EACH TABLET PO SCH (08:34)
[2022-10-23] MEDS: SPIRONOLACTONE 25 MG TABLET PO SCH (08:38)
[2022-10-23] MEDS: GABAPENTIN 100 MG CAPSULE PO SCH ×3 (08:39→17:54)
[2022-10-23] MEDS: ALLOPURINOL 100 MG TABLET PO SCH (08:39)
[2022-10-23] MEDS: PANTOPRAZOLE 40 MG TABLET.DR PO SCH (08:40)
[2022-10-23] MEDS: FUROSEMIDE 20 MG TABLET PO SCH (08:40)
[2022-10-23] MEDS: METOPROLOL SUCCINATE 25 MG TAB.SR.24H PO SCH (08:41)
[2022-10-23] MEDS: PREGABALIN 100 MG CAPSULE PO SCH ×2 (08:41→17:54)
[2022-10-23] MEDS: BACLOFEN (10 MG) 10 MG TABLET PO SCH ×3 (08:45→17:00)
[2022-10-23] MEDS: ENOXAPARIN SODIUM 40 MG/0.4 ML DISP.SYRIN SQ SCH (08:51)
--- NOTE | 2022-10-23 08:52 | NUR ---
MS SNOWBOARD DESIGNER NOTES LOVENOX SCHEDULED FOR 0900 NOT GIVEN. PER JASON MOBILE GAME ENGINEER HOLD LOVENOX PLATELET LESS THAN 50. PATIENT PLATELET TODAY IS 45.
[2022-10-23] MEDS ORDERED: MAGNESIUM OXIDE 400 MG TABLET PO ONE (09:30)
[2022-10-23 09:39] LABS: BASOPHILS % (MANUAL) 2 % (0.0-2.0); EOSINOPHILS % (MANUAL) 3 % (0-4); LYMPHOCYTES % (MANUAL) 27 % (16-48); MONOCYTES % (MANUAL) 14 % (0-11.0); NEUTROPHILS % (MANUAL) 54 (42-76)
--- NOTE | 2022-10-23 11:13 | NUR ---
WOUND CARE CONSULT: PT FOLLOWED BY DR VELASQUEZ FOR LEFT ANKLE AREA. DEFER TO DPM. LEFT POSTERIOR THIGH EXCORIATION NOTED AND DISCUSSED SKIN PROTECTION WITH NURSING STAFF. MD IN AGREEMENT WITH PLAN OF CARE.
[2022-10-23] MEDS ORDERED: Z GUARD REMEDY 4 OZ OINT TP PRN (11:30)
[2022-10-23] MEDS: Z GUARD REMEDY 4 OZ OINT TP SCH (12:02)
--- NOTE | 2022-10-23 13:50 | NUR ---
MS BILLING CLINICIAN NOTE LEFT POSTERIOR THIGH AND RIGHT POSTERIOR THIGH EXCORIATION NOTED. PHOTO TAKEN AND PLACED IN CHART. ZGUARD AND MEPILIX DRESSING APPLIED.WOUND CARE CONSULT REQUESTDE FOR RIGHT POSTERIOR THIGH.
--- NOTE | 2022-10-23 15:24 | NUR ---
MS CRIME DATA SPECIALIST NOTES PATIENT REFUSED BACLOFEN. EXPLAINED BENEFITS OF MEDICATION. PATIENT STILL REFUSED.
[2022-10-23 16:07] LABS: *ANA ANTI-CENTROMERE B AB <0.2 AI (0.0-0.9); *ANA ANTI-DNA(DS) AB, QN 68 IU/mL (0-9); *ANA ANTI-JO-1 <0.2 AI (0.0-0.9); *ANA ANTICHROMATIN ANTIBODY <0.2 AI (0.0-0.9); *ANA RNP ANTIBODIES 0.4 AI (0.0-0.9); *ANA SJOGREN'S ANTI-SS-A <0.2 AI (0.0-0.9); *ANA SJOGREN'S ANTI-SS-B <0.2 AI (0.0-0.9); *ANAANTI-SCLERODERMA-70 AB <0.2 AI (0.0-0.9); *ANASMITH AB <0.2 AI (0.0-0.9)
[2022-10-23 16:28] VITALS: BP 107/73
[2022-10-23] MEDS: MIDODRINE HCL (5MG) 5 MG TABLET PO PRN (17:55)
--- NOTE | 2022-10-23 18:41 | NUR ---
MS COMPUTER OPERATIONS SUPERVISOR NOTES Patient refused Lactulose medication. Patient had 2 BM.
--- NOTE | 2022-10-23 19:30 | NUR ---
MS RN OPENING NOTES RECEIVED PATIENT AWAKE IN BED. PATIENT IS A/O TIMES 3. ABLE TO MAKE NEEDS KNOWN. NO PAIN NOTED. NO SOB NOTED. NO DISTRESS NOTED. USING BED SIDE COMMODE. IV ACCESS NOTED ON THE RAC # 20 INTACT AND PATENT SL. ALL NEEDS ATTENDED. ALL SAFETY MEASURES IN PLACE. BED LOCKED IN THE LOWEST POSITION . CALL LIGHT AND TABLE IN EASY REACH. SIDE RAILS UP TIMES 2. WILL CONTINUE TO MONITOR CLOSELY.
--- NOTE | 2022-10-23 19:30 | NUR ---
MS GRAIN DISTRIBUTOR Closing NOTES PATIENT IN BED RESTING. ALERT AOX3. STABLE ON ROOM AIR, NO S/S OF SOB.IV RAC GAG #20. ALL NEEDS ATTENDED TO AND MEDS GIVEN. ON NEUTROPENIC PRECAUTION, MOVED FROM 327-2 TO 329. SAFETY PRECAUTION MAINTAINED: BED IN THE LOWEST, LOCKED POSITION WITH SR X2. CALL LIGHT WITHIN REACH. WILL ENDORSE TO RUBBER GOODS ASSEMBLER NURSE.
[2022-10-23 20:00] VITALS: BP 124/60
[2022-10-24] MEDS: MORPHINE SULFATE INJ 2 MG/ML DISP.SYRIN IV PRN ×4 (02:01→15:27)
[2022-10-24] MEDS: LACTULOSE 10 G/15 ML UDC (PYXIS) PO SCH ×4 (05:04→12:00)
--- NOTE | 2022-10-24 06:44 | NUR ---
MS RN CLOSING NOTES PATIENT AWAKE IN BED. PATIENT IS A/O TIMES 3. ABLE TO MAKE NEEDS KNOWN. PAIN NOTED. WILL ADMINISTER MEDICATION. NO SOB NOTED. NO DISTRESS NOTED. USING BED SIDE COMMODE. IV ACCESS NOTED ON THE RAC # 20 INTACT AND PATENT SL. ALL NEEDS ATTENDED. ALL SAFETY MEASURES IN PLACE. BED LOCKED IN THE LOWEST POSITION . CALL LIGHT AND TABLE IN EASY REACH. SIDE RAILS UP TIMES 2. WILL ENDORSE FOR MEGHANN.
[2022-10-24 07:07] LABS: *SPE ALPHA-1-GLOBULIN 0.3 g/dL (0.0-0.4); *SPE ALPHA-2-GLOBULIN 0.6 g/dL (0.4-1.0); *SPE BETA GLOBULIN 1.3 g/dL (0.7-1.3); *SPE M-SPIKE Not Observed g/dL (Not Observed)
--- NOTE | 2022-10-24 07:30 | NUR ---
MS RN OPENING NOTES RECEIVED PATIENT AWAKE IN BED, A/O X3-4, ABLE TO MAKE NEEDS KNOWN. DENIES PAIN AT THIS TIME, NO SOB NOTED ON RA. IV ACCESS ON AT RAC # 20, INTACT AND PATENT SL. USES BSC, AMBULATES WITH ASSIST. ALL SAFETY MEASURES IN PLACE, CALL LIGHT AND TABLE WITHIN EASY REACH, WILL CONT WITH PLAN OF CARE DURING SHIFT.
[2022-10-24 07:36] LABS: BASOPHILS % (AUTO) 0.9 % (0.0-2.0); EOSINOPHILS % (AUTO) 3.8 % (0.0-6.0); HEMATOCRIT 28 % (33-45); HEMOGLOBIN 8.5 g/dL (11.5-14.8); LYMPHOCYTES # (AUTO) 0.4 K/uL (0.8-4.8); LYMPHOCYTES % (AUTO) 26.2 % (20.0-44.0); MEAN CORPUSCULAR HGB CONC 31 g/dl (31.0-36.0); MEAN CORPUSCULAR VOLUME 80 fL (82-100); MONOCYTES # (AUTO) 0.2 K/uL (0.1-1.30); MONOCYTES % (AUTO) 13.8 % (2.0-12.0); NEUTROPHILS # (AUTO) 0.8 K/uL (1.8-8.9); NEUTROPHILS % (AUTO) 55.3 % (43.0-81.0); RED BLOOD CELL COUNT(AUTO) 3.42 MIL/uL (4.0-5.2)
[2022-10-24 07:47] LABS: PLATELET COUNT (AUTO) 46 K/uL (150-450); WHITE BLOOD COUNT (AUTO) 1.4 K/uL (4.3-11.0)
[2022-10-24 08:00] VITALS: BP 130/54
[2022-10-24 08:01] LABS: CALCIUM, SERUM 8.7 mg/dL (8.5-10.1); MAGNESIUM 1.5 mg/dL (1.8-2.4); PHOSPHORUS 4.2 mg/dL (2.5-4.9); POTASSIUM 3.9 mmol/L (3.5-5.1)
[2022-10-24] MEDS: PREGABALIN 100 MG CAPSULE PO SCH (08:58)
[2022-10-24] MEDS: THIAMINE HCL 100 MG TABLET PO SCH (08:58)
[2022-10-24] MEDS: BACLOFEN (10 MG) 10 MG TABLET PO SCH ×4 (08:59→13:29)
[2022-10-24] MEDS: FERROUS SULFATE (325 MG) 325 MG/TAB TABLET PO SCH (08:59)
[2022-10-24] MEDS: PANTOPRAZOLE 40 MG TABLET.DR PO SCH (08:59)
[2022-10-24] MEDS: ASCORBIC ACID 500 MG TABLET PO SCH (08:59)
[2022-10-24 09:00] VITALS: BP 130/54
[2022-10-24] MEDS: METOPROLOL SUCCINATE 25 MG TAB.SR.24H PO SCH (09:00)
[2022-10-24] MEDS ORDERED: KETOCONAZOLE 2% CREAM 15 GM TUBE TP SCH (09:00)
[2022-10-24] MEDS: FUROSEMIDE 20 MG TABLET PO SCH (09:00)
[2022-10-24] MEDS: CHOLECALCIFEROL 1,000 UNIT TABLET (VIT D3) PO SCH (09:01)
[2022-10-24] MEDS: CYANOCOBALAMIN 500 MCG TABLET PO SCH (09:01)
[2022-10-24] MEDS: GABAPENTIN 100 MG CAPSULE PO SCH ×2 (09:02→13:29)
[2022-10-24] MEDS: FOLIC ACID 1 MG TABLET PO SCH (09:02)
[2022-10-24] MEDS: SPIRONOLACTONE 25 MG TABLET PO SCH (09:02)
[2022-10-24] MEDS: ALLOPURINOL 100 MG TABLET PO SCH (09:02)
[2022-10-24] MEDS: ATORVASTATIN 10 MG TABLET PO SCH (09:02)
[2022-10-24] MEDS: CALCIUM CARB 600MG /VIT D 1 EACH TABLET PO SCH (09:04)
[2022-10-24] MEDS ORDERED: MAGNESIUM OXIDE 400 MG TABLET PO ONE (10:30)
[2022-10-24] MEDS ORDERED: KETO15CR2 TP (10:43)
[2022-10-24] MEDS: Z GUARD REMEDY 4 OZ OINT TP SCH (11:14)
[2022-10-24 12:01] LABS: EOSINOPHILS % (MANUAL) 3 % (0-4); LYMPHOCYTES % (MANUAL) 29 % (16-48); MONOCYTES % (MANUAL) 8 % (0-11.0); NEUTROPHILS % (MANUAL) 60 (42-76)
[2022-10-24] MEDS ORDERED: ALENDRONATE 70 MG TABLET PO SCH (16:00)
--- NOTE | 2022-10-24 16:30 | NUR ---
MS RN DC NOTES: PT STABLE FOR DC. REPORT GIVEN TO MIRZA BAUTISTA RN. VITALS WNL, STABLE ON RA. DC INSTRUCTIONS AND BELONGINGS CHECKLIST DISCUSSED WITH PT, SIGNED ALL DOCUMENTS. SKIN ISSUES PHOTOGRAPHED AND PLACED IN CHART. IV ACCESS AND ID BAND REMOVED. REPORT GIVEN TO EMT, RUN# [id number]. LEFT UNIT [facility] IS TRANSPORTATION.
== END 2022-10-24 16:33 | DRG 92 ==
LOC: ER 03:10 → MED 08:09
PROVIDERS: ADMIT Registered Nurse; ATTEND Registered Nurse
DX: G25.0 Essential tremor (principal); D61.818 Other pancytopenia; K76.6 Portal hypertension; R45.851 Suicidal ideations; L97.329 Non-pressure chronic ulcer of left ankle with unspecified severity; Z20.822 Contact with and (suspected) exposure to COVID-19; F41.0 Panic disorder [episodic paroxysmal anxiety]; K74.60 Unspecified cirrhosis of liver; K31.89 Other diseases of stomach and duodenum; R62.7 Adult failure to thrive; J32.0 Chronic maxillary sinusitis; D50.9 Iron deficiency anemia, unspecified; I12.9 Hypertensive chronic kidney disease with stage 1 through stage 4 chronic kidney disease, or unspecified chronic kidney disease; N18.9 Chronic kidney disease, unspecified; H81.10 Benign paroxysmal vertigo, unspecified ear; Z87.19 Personal history of other diseases of the digestive system; R26.9 Unspecified abnormalities of gait and mobility; Z96.619 Presence of unspecified artificial shoulder joint; Z79.899 Other long term (current) drug therapy; F41.9 Anxiety disorder, unspecified; W18.30XA Fall on same level, unspecified, initial encounter; Y92.9 Unspecified place or not applicable; Z98.890 Other specified postprocedural states; Z87.891 Personal history of nicotine dependence; B35.1 Tinea unguium; D72.821 Monocytosis (symptomatic); F43.21 Adjustment disorder with depressed mood; Z79.2 Long term (current) use of antibiotics; F10.11 Alcohol abuse, in remission; M25.572 Pain in left ankle and joints of left foot; Z91.81 History of falling; D69.6 Thrombocytopenia, unspecified; R16.1 Splenomegaly, not elsewhere classified; J32.9 Chronic sinusitis, unspecified
CPT/HCPCS: 36415; 70450-TC; 71045-TC; 73721-TC; 76700-TC; 80048-TC; 80053-TC; 80076-TC; 81001; 82272-TC; 82607-TC; 82728-TC; 82784; 83540-TC; 83735-TC; 84100-TC; 84155; 84165; 84443-TC; 84484-TC; 85025-TC; 85045-TC; 85385-TC; 85396; 85610-TC; 85652-TC; 85730-TC; 86140-TC; 86225; 86235; 86334; 86431-TC; 86706; 86803; 87040-TC; 87081-TC; 87340; 87806; 97110-TC; 97116-TC; 97530-TC; A4223; C9803; G0378; G0480; J0692; J1650; J2270; J3370; J3475; J7050; J7060

== ENCOUNTER 2024-10-30 06:46 | Inpatient (IN) | payer MEDICARE, BC ==
[~2024-10-30] VITALS: Ht 165.1 cm; Wt 63.5 kg
[~2024-10-30 06:46] MED LIST changes: +ALEN70TA80 PO; +ALLO300T2 PO; +ASCO-495 PO; +ATOR10TA PO; +BACL20TA PO; +CALC1TAB30 PO; -COD1CAPS15 PO; +FURO-145 PO; -GABA100C PO; -HYDR-3972 PO; +HYDR4TAB57 PO; +KETO15CR2 TP; +LACT10SO58 PO; -LACT10SO6 PO; +METO25TA20 PO; +METO25TA4 PO; +MIDO2.5T PO; +PREG100C PO; +TRAZ-257 PO; -ZOLP5TAB8 PO
[2024-10-30] MEDS: MORPHINE SULFATE INJ 2 MG/ML DISP.SYRIN IM ONE (07:30)
[2024-10-30] MEDS ORDERED: MORPHINE SULFATE INJ 4 MG/ML DISP.SYRIN ONE (08:20)
[2024-10-30 09:45] LABS: BASOPHILS % (AUTO) 0.4 % (0.0-2.0); EOSINOPHILS # (AUTO) 0.1 K/uL (0.0-0.7); HEMATOCRIT 37 % (33-45); HEMOGLOBIN 11.9 g/dL (11.5-14.8); LYMPHOCYTES # (AUTO) 0.5 K/uL (0.8-4.8); LYMPHOCYTES % (AUTO) 16.7 % (20.0-44.0); MEAN CORPUSCULAR HEMOGLOBIN 28 PG (26.0-33.0); MEAN CORPUSCULAR HGB CONC 32 g/dl (31.0-36.0); MEAN CORPUSCULAR VOLUME 85 fL (82-100); MONOCYTES # (AUTO) 0.2 K/uL (0.1-1.30); MONOCYTES % (AUTO) 8.3 % (2.0-12.0); NEUTROPHILS # (AUTO) 2.1 K/uL (1.8-8.9); NEUTROPHILS % (AUTO) 71.6 % (43.0-81.0); RED BLOOD CELL COUNT(AUTO) 4.29 MIL/uL (4.0-5.2); RED CELL DISTRIBUTION WIDTH 16.5 % (11.5-15.0); WHITE BLOOD COUNT (AUTO) 2.9 K/uL (4.3-11.0)
[2024-10-30 09:52] LABS: CALCIUM, SERUM 8.4 mg/dL (8.5-10.1); CREATININE 0.9 mg/dL (0.6-1.3); POTASSIUM 4.1 mmol/L (3.5-5.1)
[2024-10-30 09:57] LABS: INR 1.36 (0.91-1.10); PARTIAL THROMBOPLASTIN TIME 28.5 SEC (24.3-34.3); PROTHROMBIN TIME 14.1 SECS (9.2-11.1)
[2024-10-30 09:58] LABS: PLATELET COUNT (AUTO) 55 K/uL (150-450)
[2024-10-30 10:30] LABS: EOSINOPHILS % (MANUAL) 2 % (0-4); LYMPHOCYTES % (MANUAL) 8 % (16-48); MONOCYTES % (MANUAL) 3 % (0-11.0); NEUTROPHILS % (MANUAL) 37 (42-76)
[2024-10-30 10:31] LABS: PLATELET ESTIMATE DECREASED
[2024-10-30] MEDS ORDERED: HYDROMORPHONE 1 MG/1 ML DISP.SYRIN ONE (11:39)
[2024-10-30] MEDS: HYDROMORPHONE 1 MG/1 ML DISP.SYRIN IV ONE (11:54)
[2024-10-30] MEDS ORDERED: THIA100T74 PO (13:25)
[2024-10-30] MEDS ORDERED: FERR324T PO (13:25)
[2024-10-30] MEDS ORDERED: OMEP20CA15 PO (13:25)
[2024-10-30] MEDS ORDERED: APIX2.5T PO (13:25)
[2024-10-30] MEDS ORDERED: LORA-258 PO (13:25)
[2024-10-30] MEDS ORDERED: CHOL100062 PO (13:25)
[2024-10-30] MEDS ORDERED: CALC-895 PO (13:25)
[2024-10-30] MEDS ORDERED: ONDA-97 PO (13:25)
[2024-10-30] MEDS ORDERED: SERT25TA PO (13:25)
[2024-10-30] MEDS ORDERED: METH-647 PO (13:25)
[2024-10-30] MEDS ORDERED: HYDR2TAB7 PO (13:25)
[2024-10-30] MEDS ORDERED: MAGN250T10 PO (13:25)
[2024-10-30] MEDS ORDERED: ASCO-352 PO (13:25)
[2024-10-30 15:00] VITALS: O2SAT 96
[2024-10-30 16:00] VITALS: BP 134/53; TEMP 98.1; O2SAT 94
[2024-10-30] MEDS ORDERED: Z GUARD REMEDY 4 OZ OINT TP PRN (17:00)
[2024-10-30] MEDS ORDERED: ONDANSETRON HCL/PF 4 MG/2 ML VIAL IVP PRN (17:00)
[2024-10-30] MEDS ORDERED: ACETAMINOPHEN 325 MG TABLET PO PRN (17:00)
[2024-10-30] MEDS ORDERED: MAGNESIUM HYDROXIDE 30 ML UDC PO PRN (17:00)
[2024-10-30] MEDS ORDERED: LORAZEPAM 0.5 MG TABLET PO PRN (17:00)
[2024-10-30] MEDS ORDERED: MAG HYDROX/AL HYDROX/SIMETH 30 ML UDC PO PRN (17:00)
[2024-10-30] MEDS: METHOCARBAMOL (500MG) 500 MG TABLET PO SCH (17:29)
[2024-10-30] MEDS: SPIRONOLACTONE 25 MG TABLET PO SCH (17:29)
[2024-10-30] MEDS: PREGABALIN 100 MG CAPSULE PO SCH (17:29)
[2024-10-30] MEDS: HYDROMORPHONE HCL 2 MG TABLET PO PRN (17:50)
[2024-10-30 20:00] VITALS: BP 113/58; TEMP 98.8; O2SAT 92
[2024-10-31 06:40] LABS: BASOPHILS % (AUTO) 0.7 % (0.0-2.0); EOSINOPHILS # (AUTO) 0.1 K/uL (0.0-0.7); EOSINOPHILS % (AUTO) 4.1 % (0.0-6.0); HEMATOCRIT 31 % (33-45); HEMOGLOBIN 10.2 g/dL (11.5-14.8); LYMPHOCYTES # (AUTO) 0.5 K/uL (0.8-4.8); LYMPHOCYTES % (AUTO) 31.6 % (20.0-44.0); MEAN CORPUSCULAR HEMOGLOBIN 28 PG (26.0-33.0); MEAN CORPUSCULAR HGB CONC 34 g/dl (31.0-36.0); MEAN CORPUSCULAR VOLUME 84 fL (82-100); MONOCYTES # (AUTO) 0.2 K/uL (0.1-1.30); MONOCYTES % (AUTO) 14.3 % (2.0-12.0); NEUTROPHILS # (AUTO) 0.8 K/uL (1.8-8.9); NEUTROPHILS % (AUTO) 49.3 % (43.0-81.0); RED BLOOD CELL COUNT(AUTO) 3.63 MIL/uL (4.0-5.2); RED CELL DISTRIBUTION WIDTH 16.4 % (11.5-15.0)
[2024-10-31 06:58] LABS: CALCIUM, SERUM 8.4 mg/dL (8.5-10.1); MAGNESIUM 1.4 mg/dL (1.8-2.4); PHOSPHORUS 3.9 mg/dL (2.5-4.9); POTASSIUM 4.2 mmol/L (3.5-5.1)
[2024-10-31 08:00] VITALS: BP 110/54; TEMP 97.7; O2SAT 90
[2024-10-31 08:44] LABS: PLATELET COUNT (AUTO) 49 K/uL (150-450); WHITE BLOOD COUNT (AUTO) 1.7 K/uL (4.3-11.0)
[2024-10-31] MEDS: SERTRALINE HCL 25 MG TABLET PO SCH (09:08)
[2024-10-31] MEDS: FUROSEMIDE 20 MG TABLET PO SCH (09:08)
[2024-10-31] MEDS: ALLOPURINOL 100 MG TABLET PO SCH (09:10)
[2024-10-31] MEDS: PANTOPRAZOLE 40 MG TABLET.DR PO SCH (09:10)
[2024-10-31] MEDS: METOPROLOL SUCCINATE 25 MG TAB.SR.24H PO SCH (09:11)
[2024-10-31 11:34] LABS: EOSINOPHILS % (MANUAL) 2 % (0-4); LYMPHOCYTES % (MANUAL) 22 % (16-48); MONOCYTES % (MANUAL) 6 % (0-11.0); NEUTROPHILS % (MANUAL) 70 (42-76); PLATELET ESTIMATE DECREASED
[2024-10-31] MEDS: MAGNESIUM OXIDE 400 MG TABLET PO SCH (12:41)
[2024-10-31 16:00] VITALS: BP 101/57; TEMP 98.8; O2SAT 95
[2024-11-04] MEDS ORDERED: ALENDRONATE 70 MG TABLET PO SCH (17:00)
== END 2024-10-31 19:25 | disposition short-term general hospital (02) | DRG 543 ==
LOC: ER 06:58 → MED 16:45
PROVIDERS: ADMIT Internal Medicine; ATTEND Internal Medicine
DX: M84.452A Pathological fracture, left femur, initial encounter for fracture (principal); F11.20 Opioid dependence, uncomplicated; M97.02XA Periprosthetic fracture around internal prosthetic left hip joint, initial encounter; K76.6 Portal hypertension; D69.6 Thrombocytopenia, unspecified; D72.819 Decreased white blood cell count, unspecified; M80.051D Age-related osteoporosis with current pathological fracture, right femur, subsequent encounter for fracture with routine healing; R41.89 Other symptoms and signs involving cognitive functions and awareness; G62.9 Polyneuropathy, unspecified; G89.29 Other chronic pain; E78.5 Hyperlipidemia, unspecified; M10.9 Gout, unspecified; M16.11 Unilateral primary osteoarthritis, right hip; Z87.891 Personal history of nicotine dependence; Z79.899 Other long term (current) drug therapy; I10 Essential (primary) hypertension; Z96.642 Presence of left artificial hip joint; K31.89 Other diseases of stomach and duodenum; K74.60 Unspecified cirrhosis of liver
CPT/HCPCS: 36415; 73502; 80048-TC; 83735-TC; 84100-TC; 85025-TC; 85730-TC; A4223; G0378; J1171; J2270; J7030

== ENCOUNTER 2025-03-01 18:00 | Inpatient (IN) | payer MEDICARE, BC ==
[~2025-03-01] VITALS: Ht 165.1 cm; Wt 67.2 kg
[~2025-03-01 18:00] MED LIST changes: +APIX2.5T PO; +ASCO-352 PO; -ASCO-495 PO; -BACL20TA PO; +CALC-895 PO; -CALC1TAB30 PO; -CHOL100044 PO; +CHOL100062 PO; +FERR324T PO; -FERR325T23 PO; +HYDR2TAB7 PO; -HYDR4TAB57 PO; -KETO15CR2 TP; -LACT10SO58 PO; +LORA-258 PO; +MAGN250T10 PO; +METH-647 PO; -METO25TA20 PO; -MIDO2.5T PO; +OMEP20CA15 PO; +ONDA-97 PO; -PANT40TA49 PO; +SERT25TA PO; -THIA100T13 PO; +THIA100T74 PO; -TRAZ-257 PO
[2025-03-01 18:27] LABS: RED BLOOD CELL COUNT(AUTO) 4.11 MIL/uL (4.0-5.2); RED CELL DISTRIBUTION WIDTH 18.2 % (11.5-15.0); WHITE BLOOD COUNT (AUTO) 5.6 K/uL (4.3-11.0)
[2025-03-01 18:34] LABS: CALCIUM, SERUM 8.4 mg/dL (8.5-10.1); CREATININE 0.9 mg/dL (0.6-1.3); PLATELET COUNT (AUTO) 44 K/uL (150-450); SODIUM SERUM 136.0 mmol/L (136-145); UREA NITROGEN, BLOOD 31.0 mg/dL (7-18)
[2025-03-01 18:40] LABS: ASPARTATE AMINOTRANSFERASE 20.0 U/L (15-37); TOTAL PROTEIN, SERUM 7.2 g/dL (6.4-8.2)
[2025-03-01 18:41] LABS: INR 1.24 (0.91-1.10)
[2025-03-01 18:42] LABS: LACTIC ACID 1.7 mmol/L (0.4-2.0)
[2025-03-01] MEDS ORDERED: ACETAMINOPHEN 650 MG/SUPP.RECT RC ONE (18:48)
[2025-03-01] MEDS ORDERED: NALO4SPR NS (18:54)
[2025-03-01] MEDS ORDERED: LACT10SO29 PO (18:54)
[2025-03-01] MEDS ORDERED: LOPE2CAP PO (18:54)
[2025-03-01] MEDS ORDERED: MULT-594 PO (18:54)
[2025-03-01] MEDS ORDERED: CALC-261 PO (18:54)
[2025-03-01] MEDS ORDERED: CYCL30DR EACHEYE (18:54)
[2025-03-01] MEDS ORDERED: PROTEIN PO (18:54)
[2025-03-01] MEDS ORDERED: ACET325T53 PO (18:54)
[2025-03-01] MEDS ORDERED: MAG30ORA PO (18:54)
[2025-03-01] MEDS ORDERED: MAG PO (18:54)
[2025-03-01] MEDS ORDERED: BISA10SU11 RC (18:54)
[2025-03-01] MEDS ORDERED: DOCU100C36 PO (18:54)
[2025-03-01] MEDS ORDERED: MAGN400O6 PO (18:54)
[2025-03-01] MEDS: ACETAMINOPHEN 650 MG/SUPP.RECT RC ONE (18:58)
[2025-03-01 19:04] LABS: APPEARANCE,URINE SLIGHTLY CLOUDY (CLEAR); BLOOD, URINE 2+ Ery/uL (NEGATIVE); LEUKOCYTE ESTERASE ,URINE 3+ (NEGATIVE); NITRITE, URINE NEGATIVE (NEGATIVE); UGLUCOSE NEGATIVE (NEGATIVE)
[2025-03-01] MEDS ORDERED: IV NS 0.9% 250 ML IV ONE (19:25)
[2025-03-01] MEDS ORDERED: IOHEXOL-350 100 ML VIAL IV ONE (19:25)
[2025-03-01 19:29] LABS: ADD URINE CULTURE YES; SQUAMOUS EPITHELIAL CELL,UR None Seen /HPF (None Seen)
[2025-03-01] MEDS ORDERED: VANCOMYCIN 1 GM /D5W 250 ML PB IV ONE (19:39)
[2025-03-01] MEDS ORDERED: PIPERACI/TAZO 3.375GM/D5W 50ML PB IV ONE (19:39)
[2025-03-01] MEDS: PIPERACILLIN /TAZOBACTAM 3.375 G in IV D5W 50 ML IV ONE (19:45)
[2025-03-01] MEDS ORDERED: IPRATROPIUM NEB FS 0.5 MG/2.5 ML AMPUL.NEB NEB PRN (20:00)
[2025-03-01] MEDS: IPRATROPIUM NEB FS 0.5 MG/2.5 ML AMPUL.NEB NEB ONE (20:00)
[2025-03-01] MEDS ORDERED: DOSING PER PHARMACY-VANCOMYCIN IV XX PRN (20:00)
[2025-03-01] MEDS ORDERED: ACETAMINOPHEN 650 MG/SUPP.RECT RC PRN (20:00)
[2025-03-01] MEDS: ALBUTEROL FS 2.5 MG/0.5 ML VIAL.NEB NEB ONE (20:00)
[2025-03-01] MEDS ORDERED: ONDANSETRON HCL/PF 4 MG/2 ML VIAL IVP PRN (20:00)
[2025-03-01] MEDS ORDERED: Z GUARD REMEDY 4 OZ OINT TP PRN (20:00)
[2025-03-01] MEDS ORDERED: MAG HYDROX/AL HYDROX/SIMETH 30 ML UDC PO PRN (20:00)
[2025-03-01] MEDS ORDERED: ALBUTEROL FS 2.5 MG/0.5 ML VIAL.NEB NEB PRN (20:00)
[2025-03-01] MEDS ORDERED: MAGNESIUM HYDROXIDE 30 ML UDC PO PRN (20:00)
[2025-03-01 20:21] LABS: BAND % (MANUAL) 2 % (0.0-5.0); EOSINOPHILS % (MANUAL) 1 % (0-4); LYMPHOCYTES % (MANUAL) 11 % (16-48); MONOCYTES % (MANUAL) 10 % (0-11.0); NEUTROPHILS % (MANUAL) 76 (42-76); PLATELET ESTIMATE DECREASED
[2025-03-01] MEDS: VANCOMYCIN 1 GM in IV D5W 250 ML IV ONE (20:30)
[2025-03-01] MEDS ORDERED: NOREPINEPHRINE 8MG/250ML RTU 250 ML IV ONE (20:54)
[2025-03-01] MEDS ORDERED: BISACODYL SUPP (10 MG) 10 MG/SUPP.RECT SUPP.RECT RC PRN (21:00)
[2025-03-01] MEDS: NOREPINEPHRINE 8 MG in IV D5W 242 ML IV PRN (21:03)
[2025-03-01] MEDS: PIPERACI/TAZO 3.375GM/D5W 50ML PB IV ONE (22:07)
[2025-03-01 23:00] VITALS: BP 131/53; O2SAT 97
[2025-03-01 23:15] VITALS: BP 95/45; O2SAT 97
[2025-03-01 23:20] VITALS: BP 143/67; O2SAT 96
[2025-03-01 23:30] VITALS: BP 103/48; O2SAT 95
[2025-03-01 23:45] VITALS: BP 114/59; O2SAT 96
[2025-03-01 23:49] LABS: ABG BASE EXCESS 2.3 mmol/L (-2.0-3.0); ABG OXYGEN SATURATION 95.1 % (94.0-98.0); ABG PCO2 55.3 mmHg (32.0-45.0); ABG PH 7.342 (7.350-7.450); ABG PO2 77.9 mmHg (83.0-108.0); ABG TOTAL HEMOGLOBIN 14.4 G/dL (12.0-16.0); FLOW, BLOOD GAS 10.00 L/min (0.00-30.00); FRACTIONATED INSPIRED OXYGEN 60.0 %; SITE, ABG LEFT RADIAL
[2025-03-01] MEDS: IV NS 0.9% 250 ML IV PRN (23:53)
[2025-03-02] VITALS (81 sets, daily range): BP systolic 64–184; BP diastolic 39–107; TEMP 97.8–98.4; O2SAT 92–100
[2025-03-02] MEDS ORDERED: PIPERACILLIN /TAZOBACTAM 3.375 G in IV D5W 50 ML IV SCH ×2 (01:45→05:00)
[2025-03-02] MEDS: ZOSYN IVPB 3.375 G in IV D5W 50ml IV ONE (03:35)
[2025-03-02 04:57] LABS: PLATELET COUNT (AUTO) 55 K/uL (150-450); RED BLOOD CELL COUNT(AUTO) 4.41 MIL/uL (4.0-5.2); RED CELL DISTRIBUTION WIDTH 18.7 % (11.5-15.0); WHITE BLOOD COUNT (AUTO) 11.2 K/uL (4.3-11.0)
[2025-03-02 05:06] LABS: CALCIUM, SERUM 8.5 mg/dL (8.5-10.1); CREATININE 1.2 mg/dL (0.6-1.3); PHOSPHORUS 3.7 mg/dL (2.5-4.9); SODIUM SERUM 142.0 mmol/L (136-145); UREA NITROGEN, BLOOD 33.0 mg/dL (7-18)
[2025-03-02 05:55] LABS: BASOPHILS % (MANUAL) 0 % (0.0-2.0); EOSINOPHILS % (MANUAL) 0 % (0-4); LYMPHOCYTES % (MANUAL) 15 % (16-48); MONOCYTES % (MANUAL) 9 % (0-11.0); NEUTROPHILS % (MANUAL) 76 (42-76); PLATELET ESTIMATE DECREASED
[2025-03-02] MEDS: FOLIC ACID 1 MG TABLET PO SCH (08:03)
[2025-03-02] MEDS: ATORVASTATIN 10 MG TABLET PO SCH (08:04)
[2025-03-02] MEDS: PREGABALIN 100 MG CAPSULE PO SCH (08:04)
[2025-03-02] MEDS: METOPROLOL SUCCINATE 25 MG TAB.SR.24H PO SCH (08:04)
[2025-03-02] MEDS: MULTIVITAMINS,THERAGRAN 1 UDTAB TABLET PO SCH (08:04)
[2025-03-02] MEDS: THIAMINE HCL 100 MG TABLET PO SCH (08:04)
[2025-03-02] MEDS: SERTRALINE HCL 25 MG TABLET PO SCH (08:05)
[2025-03-02] MEDS: PANTOPRAZOLE 40 MG TABLET.DR PO SCH (08:06)
[2025-03-02] MEDS ORDERED: Medication Not On Formulary EA (Multivitamins (Multivitamin) 1 TAB) PO SCH (09:00)
[2025-03-02] MEDS ORDERED: OMEPRAZOLE 20 MG CAPSULE.DR PO SCH (09:00)
[2025-03-02] MEDS ORDERED: PANTOPRAZOLE 40 MG VIAL IV SCH (09:00)
[2025-03-02 10:18] LABS: ABG BASE EXCESS 3.6 mmol/L (-2.0-3.0); ABG OXYGEN SATURATION 96.1 % (94.0-98.0); ABG PCO2 49.1 mmHg (32.0-45.0); ABG PH 7.395 (7.350-7.450); ABG PO2 84.8 mmHg (83.0-108.0); ABG TOTAL HEMOGLOBIN 13.4 G/dL (12.0-16.0); FLOW, BLOOD GAS 5.00 L/min (0.00-30.00); FRACTIONATED INSPIRED OXYGEN 40.0 %; SITE, ABG RIGHT RADIAL
[2025-03-02] MEDS: MIDODRINE HCL (5MG) 5 MG TABLET PO SCH (11:00)
[2025-03-02] MEDS: Magnesium 1GM/D5W 100ML PREMIX 100 ML IV SCH (11:45)
[2025-03-02] MEDS: PIPERACILLIN /TAZOBACTAM 3.375 G in IV D5W 100 ML IV SCH (11:45)
[2025-03-02] MEDS: NOREPINEPHRINE 8 MG in IV D5W 242 ML IV PRN (11:52)
[2025-03-02] MEDS: HYDROCODONE/APAP 5/325MG TABLET PO PRN (15:43)
[2025-03-02] MEDS: VANCOMYCIN 1 GM in IV D5W 250ml IV SCH (19:51)
[2025-03-03] VITALS (11 sets, daily range): BP systolic 95–150; BP diastolic 47–86; TEMP 97.8–98.2; O2SAT 93–99
[2025-03-03 04:34] LABS: RED BLOOD CELL COUNT(AUTO) 3.83 MIL/uL (4.0-5.2); RED CELL DISTRIBUTION WIDTH 18.7 % (11.5-15.0); WHITE BLOOD COUNT (AUTO) 2.8 K/uL (4.3-11.0)
[2025-03-03 04:50] LABS: CALCIUM, SERUM 8.2 mg/dL (8.5-10.1); CREATININE 1.0 mg/dL (0.6-1.3); SODIUM SERUM 137 mmol/L (136-145); UREA NITROGEN, BLOOD 29 mg/dL (7-18)
[2025-03-03 05:05] LABS: PLATELET COUNT (AUTO) 35 K/uL (150-450)
[2025-03-03 05:32] LABS: EOSINOPHILS % (MANUAL) 3 % (0-4); LYMPHOCYTES % (MANUAL) 20 % (16-48); MONOCYTES % (MANUAL) 6 % (0-11.0); NEUTROPHILS % (MANUAL) 71 (42-76); PLATELET ESTIMATE DECREASED
[2025-03-03] MEDS: FUROSEMIDE 20 MG/2 ML VIAL IV SCH (08:04)
[2025-03-03] MEDS: HYDROCORTISONE SOD SUCCINATE 100 MG/2 ML VIAL IV SCH (09:54)
[2025-03-03 16:24] LABS: CREATININE, URINE 17.3 MG/DL (30.0-125.0); URINE SODIUM, RANDOM 100.0 mmol/l (40-220); URINE TOTAL PROTEIN 25.9 mg/dL (0-11.9)
[2025-03-04] VITALS: BP 119/57; TEMP 98.2; O2SAT 94
[2025-03-04 04:00] VITALS: BP 141/64; TEMP 97.5; O2SAT 96
[2025-03-04 07:00] VITALS: BP 113/78; TEMP 97.1; O2SAT 95
[2025-03-04] MEDS: SPIRONOLACTONE 25 MG TABLET PO SCH (08:33)
[2025-03-04] MEDS: HYDROCORTISONE SOD SUCCINATE 100 MG/2 ML VIAL IV SCH (08:34)
[2025-03-04 09:35] LABS: CALCIUM, SERUM 8.0 mg/dL (8.5-10.1); SODIUM SERUM 135 mmol/L (136-145)
[2025-03-04 09:36] LABS: ASPARTATE AMINOTRANSFERASE 19 U/L (15-37); CREATININE 0.9 mg/dL (0.6-1.3); PHOSPHORUS 2.0 mg/dL (2.5-4.9); UREA NITROGEN, BLOOD 22 mg/dL (7-18)
[2025-03-04 09:37] LABS: TOTAL PROTEIN, SERUM 7.5 g/dL (6.4-8.2)
[2025-03-04 09:42] LABS: WHITE BLOOD COUNT (AUTO) 2.5 K/uL (4.3-11.0)
[2025-03-04 09:43] LABS: PLATELET COUNT (AUTO) 51 K/uL (150-450); RED BLOOD CELL COUNT(AUTO) 4.02 MIL/uL (4.0-5.2); RED CELL DISTRIBUTION WIDTH 18.4 % (11.5-15.0)
[2025-03-04 10:23] LABS: CREATINE KINASE, TOTAL 20 U/L (26-192)
[2025-03-04 11:22] LABS: LYMPHOCYTES % (MANUAL) 10 % (16-48); MONOCYTES % (MANUAL) 2 % (0-11.0); NEUTROPHILS % (MANUAL) 88 (42-76)
[2025-03-04 11:23] LABS: PLATELET ESTIMATE DECREASED
[2025-03-04 11:30] VITALS: BP 144/74; TEMP 98.4; O2SAT 94
[2025-03-04 16:00] VITALS: BP 153/64; TEMP 97.9; O2SAT 95
[2025-03-04] MEDS: K PHOS NEUTRAL 250 MG TABLET PO ONE (16:44)
[2025-03-04 20:00] VITALS: BP 145/65; TEMP 98.2; O2SAT 95
[2025-03-05 08:00] VITALS: BP 121/92; TEMP 97.5; O2SAT 95
[2025-03-05 08:02] LABS: RED BLOOD CELL COUNT(AUTO) 3.89 MIL/uL (4.0-5.2); RED CELL DISTRIBUTION WIDTH 17.6 % (11.5-15.0); WHITE BLOOD COUNT (AUTO) 2.7 K/uL (4.3-11.0)
[2025-03-05 08:07] LABS: PTH, INTACT 115 pg/mL (15-65)
[2025-03-05 08:12] LABS: CALCIUM, SERUM 7.5 mg/dL (8.5-10.1); CREATININE 0.9 mg/dL (0.6-1.3); SODIUM SERUM 135.0 mmol/L (136-145); UREA NITROGEN, BLOOD 19.0 mg/dL (7-18)
[2025-03-05 08:21] LABS: PLATELET COUNT (AUTO) 47 K/uL (150-450)
[2025-03-05] MEDS ORDERED: PHENAZOPYRIDINE HCL 200 MG TABLET PO PRN (08:30)
[2025-03-05] MEDS: HYDROCORTISONE SOD SUCCINATE 100 MG/2 ML VIAL IV SCH (08:35)
[2025-03-05 09:03] LABS: LYMPHOCYTES % (MANUAL) 5 % (16-48); NEUTROPHILS % (MANUAL) 89 (42-76)
[2025-03-05 09:04] LABS: MONOCYTES % (MANUAL) 6 % (0-11.0); PLATELET ESTIMATE DECREASED
[2025-03-05] MEDS: POTASSIUM CHLORIDE 20 MEQ TAB.PRT.SR PO ONE (11:13)
[2025-03-05 16:00] VITALS: BP 167/72; TEMP 97.3; O2SAT 95
[2025-03-05 20:00] VITALS: BP 131/76; TEMP 97.5; O2SAT 95
[2025-03-05] MEDS: LOPERAMIDE HCL (2 MG CAP) 2 MG CAPSULE PO PRN (22:53)
[2025-03-06 06:56] LABS: CALCIUM, SERUM 7.8 mg/dL (8.5-10.1); CREATININE 0.9 mg/dL (0.6-1.3); SODIUM SERUM 140.0 mmol/L (136-145); UREA NITROGEN, BLOOD 22.0 mg/dL (7-18)
[2025-03-06 07:28] LABS: RED BLOOD CELL COUNT(AUTO) 4.10 MIL/uL (4.0-5.2); RED CELL DISTRIBUTION WIDTH 17.8 % (11.5-15.0); WHITE BLOOD COUNT (AUTO) 3.1 K/uL (4.3-11.0)
[2025-03-06 07:30] VITALS: BP 115/70; TEMP 97.3; O2SAT 94
[2025-03-06 07:53] LABS: PLATELET COUNT (AUTO) 47 K/uL (150-450)
[2025-03-06 08:00] LABS: BAND % (MANUAL) 1 % (0.0-5.0); LYMPHOCYTES % (MANUAL) 20 % (16-48); MONOCYTES % (MANUAL) 6 % (0-11.0); NEUTROPHILS % (MANUAL) 73 (42-76); PLATELET ESTIMATE DECREASED
[2025-03-06 08:15] VITALS: BP 115/70
[2025-03-06] MEDS: POTASSIUM CHLORIDE 20 MEQ TAB.PRT.SR PO ONE (08:17)
[2025-03-06] MEDS ORDERED: PHEN-895 PO (12:14)
[2025-03-07] MEDS ORDERED: HYDROCORTISONE SOD SUCCINATE 100 MG/2 ML VIAL IV SCH (09:00)
== END 2025-03-06 15:40 | DRG 871 ==
LOC: ER 18:03 → TELE1 19:24 → ICU 21:17 → TELE 03-03 09:38 → MED 03-04 15:14
PROVIDERS: ATTEND Internal Medicine
DX: A41.9 Sepsis, unspecified organism (principal); J15.69 Pneumonia due to other Gram-negative bacteria; J96.01 Acute respiratory failure with hypoxia; J96.02 Acute respiratory failure with hypercapnia; N39.0 Urinary tract infection, site not specified; E27.40 Unspecified adrenocortical insufficiency; K76.6 Portal hypertension; N17.9 Acute kidney failure, unspecified; K74.60 Unspecified cirrhosis of liver; Z20.822 Contact with and (suspected) exposure to COVID-19; Z66 Do not resuscitate; R26.9 Unspecified abnormalities of gait and mobility; E78.5 Hyperlipidemia, unspecified; Z98.890 Other specified postprocedural states; H81.10 Benign paroxysmal vertigo, unspecified ear; Z87.19 Personal history of other diseases of the digestive system; K21.9 Gastro-esophageal reflux disease without esophagitis; F32.A Depression, unspecified; Z96.612 Presence of left artificial shoulder joint; Z88.1 Allergy status to other antibiotic agents; Z88.8 Allergy status to other drugs, medicaments and biological substances; Z91.048 Other nonmedicinal substance allergy status; Z79.899 Other long term (current) drug therapy; Z87.891 Personal history of nicotine dependence; Y95 Nosocomial condition; M89.8X9 Other specified disorders of bone, unspecified site; I10 Essential (primary) hypertension; B96.89 Other specified bacterial agents as the cause of diseases classified elsewhere; R79.89 Other specified abnormal findings of blood chemistry; D69.6 Thrombocytopenia, unspecified; E87.5 Hyperkalemia; F10.91 Alcohol use, unspecified, in remission; F09 Unspecified mental disorder due to known physiological condition; E87.6 Hypokalemia; E83.39 Other disorders of phosphorus metabolism
CPT/HCPCS: 36415; 36600; 71045-TC; 80048-TC; 80053-TC; 80076-TC; 80202-TC; 81001; 82533; 82550-TC; 82570-TC; 82803-TC; 83605-TC; 83735-TC; 83880; 83970; 84100-TC; 84155; 84165; 84300-TC; 84443-TC; 84484-TC; 85027-TC; 85730-TC; 87040-TC; 87045-TC; 87081-TC; 87086-TC; 92526; 92611; 93307-TC; 94799-TC; 97110-TC; 97116-TC; 97530-TC; A4223; G0378; J1720; J1938; J2543; J3373; J3475; J7050; J7060; Q9967